=== PATIENT | female | born 1940 | race Two or more races ===

== ENCOUNTER → 2024-08-25 | Outpatient (CLI) | payer OTHER, MEDICAID, SELFPAY | END | disposition home or self-care (01) | LOC: COPL 16:21 → SLDO 16:26 | PROVIDERS: PCP Family Medicine; Referring Provider Family Medicine; Visit Provider Family Medicine | DX: N39.0 Urinary tract infection, site not specified (principal) | CPT/HCPCS: 87077; 87086; 87186 ==

== ENCOUNTER → 2024-10-06 | Outpatient (CLI) | payer MEDICARE, MEDICAID, SELFPAY | END | disposition home or self-care (01) | PROVIDERS: PCP Family Medicine; Referring Provider Family Medicine; Visit Provider Family Medicine | DX: N39.0 Urinary tract infection, site not specified (principal) | CPT/HCPCS: 87086 ==

== ENCOUNTER → 2024-10-11 | Outpatient (CLI) | payer MEDICARE, MEDICAID, SELFPAY ==
[2024-10-11 10:25] LABS: Collection Type, Urine Clean Catch
[2024-10-11 10:56] LABS: Bilirubin,Urine Negative (Negative); Blood,Urine Negative (Negative); Clarity,Urine Clear (Clear/Hazy); Color,Urine Lt-Yellow (Lt Yel-Yel); Culture Indicated,Urine Not Indicated; Glucose, Urine Negative (Negative); Hyaline Casts,Urine < 1 /hpf (0-1); Ketones,Urine Negative (Negative); Leukocyte Esterase,Urine Negative (Negative); Nitrite,Urine Negative (Negative); Protein,Urine Trace (Neg - Trace); RBC,Urine 18 /hpf (0-3); Specific Gravity,Urine 1.021 (1.001-1.035); Squamous Epithelial Cell,Urine 1 /hpf (0-5); Urobilinogen,Urine Negative mg/dL (0.0-1.0); WBC,Urine 3 /hpf (0-5)
[2024-10-11 11:07] LABS: Albumin, Serum 4.4 gm/dL (3.4-4.8); Anion Gap 6 (7-16); BUN/Creatinine Ratio 18 Ratio (12-20); Blood Urea Nitrogen 16 mg/dL (9-23); Calcium 9.6 mg/dL (8.3-10.6); Calcium (Corrected) 9.6 mg/dL (8.5-10.1); Carbon Dioxide 33.6 mMol/L (20.0-31.0); Chloride 99 mMol/L (98-107); Creatinine (Component) 0.9 mg/dL (0.6-1.3); Glucose 103 mg/dL (74-106); Osmolality,Calculated 278 (275-295); Phosphorous 3.8 mg/dL (2.4-5.1); Potassium 4.3 mMol/L (3.4-5.1); Sodium 139 mMol/L (136-145); eGFR > 60 See Note
== END | disposition home or self-care (01) ==
LOC: COPL 08:50
PROVIDERS: PCP Family Medicine; Referring Provider Internal Medicine; Visit Provider Internal Medicine
DX: I12.9 Hypertensive chronic kidney disease with stage 1 through stage 4 chronic kidney disease, or unspecified chronic kidney disease (principal); N18.30 Chronic kidney disease, stage 3 unspecified
CPT/HCPCS: 36415; 80069; 81001

== ENCOUNTER → 2024-12-14 | Outpatient (BNVA) | payer MEDICARE, MEDICAID, SELFPAY | END | disposition home or self-care (01) | PROVIDERS: PCP Family Medicine; Referring Provider Family Medicine; Visit Provider Urology | DX: N31.9 Neuromuscular dysfunction of bladder, unspecified (principal); G20.C Parkinsonism, unspecified; F03.90 Unspecified dementia, unspecified severity, without behavioral disturbance, psychotic disturbance, mood disturbance, and anxiety; I10 Essential (primary) hypertension; I25.10 Atherosclerotic heart disease of native coronary artery without angina pectoris; H35.52 Pigmentary retinal dystrophy; E03.9 Hypothyroidism, unspecified; E66.9 Obesity, unspecified; Z68.31 Body mass index [BMI] 31.0-31.9, adult | CPT/HCPCS: 81003; 99212; G0463 ==

== ENCOUNTER 2025-01-11 21:36 | Inpatient (IN) | payer OTHER, MEDICAID, MEDICARE, SELFPAY ==
--- NOTE | 2025-01-11 21:40 | EKG_ITS ---
[facility] Test Date: 2025-01-11 Pat Name: NEHA PUTNAM Department: Room: - Gender: Female [employer]asing [employer]: : 1940 Requested By: Albert Duff Order Number: [id number] Reading MD: Albert Duff Measurements Intervals [place] Rate: 58 P: 18 SC: 162 QRS: -20 QRSD: 82 T: 10 QT: 408 QTc: 404 Interpretive Statements SINUS BRADYCARDIA NONSPECIFIC T-WAVE ABNORMALITY Compared to ECG 02/05/2023 21:16:39 Sinus rhythm no longer present Myocardial infarct finding no longer present Possible ischemia no longer present T-wave abnormality still present /store/S0/[id number]/ecg/[id number].pdf
--- NOTE | 2025-01-11 21:44 | PD.EDADULT ---
ED General RME/HPI General Chief complaint: Weakness Stated complaint: GENERALIZED WEAKNESS Time Seen by Provider: 01/11/25 21:39 Arrival date/time: 01/11/25 21:36 CC: Generalized weakness with a history of diarrhea HPI patient presents to the ER via EMS who report a soft pressure but normal heart rate and normal oxygen saturations after the patient was found slumped to the commode, family members got her into the tub and then could not get her out secondary to weakness. The patient has prior 2 days of diarrhea. Patient is awake alert responding to name only. EMS have given approximately 500 mL for hypotension and route. Related Data Home Medications ?Medication ?Instructions ?Recorded ?Confirmed Aspirin Ec * (ECOTRIN *) 81 mg PO QDAY ##0 08/14/17 01/13/25 Levothyroxine * (SYNTHROID *) 50 mcg PO QDAY #0 tabs 08/14/17 01/13/25 simvastatin 40 mg tablet (Zocor) 40 mg PO HS #0 tabs 08/14/17 01/13/25 loratadine 10 mg tablet 10 mg PO QDAY 04/09/18 01/13/25 estradiol 0.01% (0.1 mg/gram) 2 g vaginal DIRECTED 01/29/24 12/14/24 vaginal cream (Estrace) albuterol sulfate 90 mcg/actuation 2 puff inhalation Q8H PRN 06/11/24 01/13/25 aerosol inhaler shortness of breath or wheezing ascorbic acid (vitamin C) 500 mg 500 mg PO QDAY 06/11/24 01/13/25 capsule bumetanide 1 mg tablet 0.5 mg PO QDAY 06/11/24 01/13/25 cranberry 500 mg capsule 500 mg PO QDAY 06/11/24 01/13/25 gabapentin 300 mg capsule 300 mg PO TID 06/11/24 01/13/25 meclizine 25 mg tablet 25 mg PO BID 06/11/24 01/13/25 propranolol 20 mg tablet 20 mg PO BID 06/11/24 01/13/25 carbidopa 25 mg-levodopa 100 mg 1 tab PO TID 01/13/25 01/13/25 tablet esomeprazole magnesium 40 mg 40 mg PO QDAY 01/13/25 01/13/25 capsule,delayed release potassium chloride 10 mEq 10 meq PO QDAY 01/13/25 01/13/25 tablet,extended release(part/cryst) Previous Rx's ?Medication ?Instructions ?Recorded amoxicillin 875 mg tablet 875 mg PO BID Diverticulitis 7 01/14/25 days #14 tabs losartan 100 mg tablet 100 mg PO QDAY 1 month #30 tabs 01/14/25 melatonin 3 mg capsule 3 mg PO HS PRN sleep 30 days #30 01/14/25 caps Allergies Allergy/AdvReac Type Severity Reaction Status Date / Time nitrofurantoin (From Allergy Intermediate Abdominal Verified 01/12/25 10:17 Macrobid) Pain macrobid Allergy Intermediate per Uncoded 01/12/25 10:17 patient family she has severe stomach Review of Systems Review of Systems ROS Unobtainable: unobtainable due to mental status Past Medical History Past Medical History CARDIAC: Positive Hypertension; Negative Congestive Heart Failure RESPIRATORY: Negative Chronic Obstructive Pulmonary Disease (COPD) GASTROINTESTINAL: Positive Gall Bladder Disease (Gallstones) GENITOURINARY: Negative Renal Disease ENDOCRINE: Negative Diabetes Mellitus Type 1 or Diabetes Mellitus Type 2 Social History SMOKING STATUS: Never smoker ED Exam Narrative Physical exam: [General: Appears not in any acute distress Head normocephalic HEENT: Within acceptable limits Neck is supple nontender Chest equal chest rise nontender to palpation Respiratory: Clear to auscultation no wheezes crackles or rubs CV: Rate rhythm is regular no murmurs rubs or clicks Abdomen is distended secondary to body habitus soft nontender no masses positive bowel sounds all 4 quadrants Back: No CVA tenderness no spinous process tenderness from cervical spine thoracic and lumbar spine Skin: Cyanotic lips, no circumoral stenosis. Intact no petechiae rash induration ulceration or crepitus Extremities: Moving all extremity against resistance cap refill less than 2 seconds neurosensory intact Neuro: Awake alert oriented x1, self, Glascow coma 15 no focal deficits] Course Quality Measures VTE prophylaxis Orders Category Date Time Status Bedside COVID-19 Antigen Test NOW Care 01/11/25 21:40 Completed Bedside Influenza A&B Antigen Test NOW Care 01/11/25 21:40 Completed EKG (ED ONLY) *Do not use* NOW Care 01/11/25 21:[address] chest abdomen pelvis wo Stat Exams 01/11/25 23:[address] head/brain wo con Stat Exams 01/11/25 23:13 Completed EKG (ED Only) Stat Exams 01/11/25 21:40 Draft ABG [Arterial Blood Gas] Stat Lab 01/12/25 03:25 Completed Ammonia Stat Lab 01/12/25 02:27 Completed B-Type Natriuretic Peptide Stat Lab 01/11/25 22:07 Completed CBC Stat Lab 01/11/25 22:07 Completed Comprehensive Metabolic Panel Stat Lab 01/11/25 22:07 Completed Drug Screen,Urine Stat Lab 01/11/25 21:40 Completed Free T4 (Free Thyroxine) Stat Lab 01/12/25 02:27 Completed LDH (Lactate Dehydrogenase) Stat Lab 01/11/25 22:07 Completed Magnesium Stat Lab 01/11/25 22:07 Completed Partial Thromboplastin Time Stat Lab 01/11/25 22:07 Completed Prothrombin Time with INR Stat Lab 01/11/25 22:07 Completed TSH [Thyroid Stimulating Hormone] Stat Lab 01/12/25 02:27 Completed Troponin I Stat Lab 01/11/25 22:07 Completed Urinalysis Stat Lab 01/11/25 00:30 Completed Aspirin [Ecotrin] Med 01/12/25 02:32 Discontinued 81 mg PO X1 ONE Clopidogrel [Plavix] Med 01/12/25 02:32 Discontinued 75 mg PO X1 ONE Vital Signs Vital signs: Vital Signs Pulse Rate 62 01/11/25 22:00 Respiratory Rate 15 01/11/25 22:00 Blood Pressure 114/70 01/11/25 22:00 Pulse Oximetry (%) 100 01/11/25 22:00 Discharge Plan Plan Patient Disposition: Admit Acute Care w/in Hospital Patient condition on transfer: Stable Problem List Clinical Impression: CVA (cerebral vascular accident), Diverticulitis, Acute respiratory failure with hypoxia MD Attestation Attestation I took over the care from Albert Hickman NP at 11 PM on 01/11/2025, see his notes for complete H&P and ED course. I reviewed all diagnostic test results. My interpretation of the EKG is sinus rhythm with no acute ST?T changes. My review of the head CT report is hypodense area in the white matter of the left frontal lobe, this is suspicious for acute infarct. My review of the chest/abdomen/pelvis CT report is: Acute diverticulitis of the sigmoid colon. Small consolidations at the lung bases, atelectasis versus small foci of pneumonia. Blood tests and urine tests unremarkable. At this point, diagnoses include CVA, diverticulitis, respiratory failure with hypoxia. Treatment here included ASA and Plavix and oxygen. Significant improvement not noted. Our telehealth neurologist recommended admission for further care. I discussed the case with our hospitalist. About the presentation and exam and diagnostics and treatments here. And need of further care in the hospital. Will accept the patient. Ruslan Scott MD
[2025-01-11 21:51] VITALS: PULSE 60; RESP 20; O2SAT 94
[2025-01-11 22:00] VITALS: BP 114/70; PULSE 62; RESP 15; O2SAT 100
[2025-01-11 22:01] VITALS: BP 114/70; PULSE 60; RESP 15; TEMP 36.6; O2SAT 100; BMI 31.2
[2025-01-11 22:36] LABS: Basophils % (Auto) 0 % (0-2.5); Eosinophils # (Auto) 0.1 Thou/mm3 (0.0-0.5); Eosinophils % (Auto) 1 % (0-10); Hematocrit 40.1 % (36.0-46.0); Hemoglobin 12.9 g/dL (12.0-16.0); Immature Granulocytes % (Auto) 1 % (0-0); Immature Granulocytes Auto 0.06 Thou/mm3 (0.00-0.00); Lymphocytes # (Auto) 0.6 Thou/mm3 (1.0-4.8); Lymphocytes % (Auto) 7 % (10-50); Mean Corpuscular HGB Conc 32.2 g/dl (31.0-37.0); Mean Corpuscular Hemoglobin 32.7 pg (25.0-35.0); Mean Corpuscular Volume 102 fL (80-100); Monocytes # (Auto) 0.7 Thou/mm3 (0.0-0.8); Monocytes % (Auto) 8 % (0-12); Neutrophils # (Auto) 7.4 Thou/mm3 (1.8-7.7); Neutrophils % (Auto) 84 % (37-80); Nucleated Red Blood Cell % 0 /100 WBC (0); Platelet Count 118 Thou/mm3 (140-440); RDW Standard Deviation 53.1 fL (36.4-46.3); Red Blood Count 3.94 Miln/mm3 (4.00-5.20); White Blood Count 8.8 Thou/mm3 (3.6-11.0)
[2025-01-11 22:42] LABS: INR 1.1 (0.9-1.3); Partial Thromboplastin Time 24.7 Seconds (22.0-36.0); Prothrombin Time 11.7 Seconds (9.0-12.2)
[2025-01-11 22:44] LABS: B-Type Natriuretic Peptide 105 pg/mL (0-100)
[2025-01-11 23:00] LABS: Alanine Aminotransferase < 7 U/L (10-49); Albumin, Serum 3.9 gm/dL (3.4-4.8); Albumin/Globulin Ratio 1.5 (1.2-2.2); Alkaline Phosphatase 52 U/L (46-116); Anion Gap 9 (7-16); Aspartate Amino Transferase 20 U/L (0-34); BUN/Creatinine Ratio 14 Ratio (12-20); Bilirubin,Total 0.4 mg/dL (0.3-1.2); Blood Urea Nitrogen 21 mg/dL (9-23); Calcium 9.1 mg/dL (8.3-10.6); Calcium (Corrected) 9.2 mg/dL (8.5-10.1); Carbon Dioxide 28.1 mMol/L (20.0-31.0); Chloride 101 mMol/L (98-107); Creatinine (Component) 1.5 mg/dL (0.6-1.3); Estimated Creatinine Clearance 23.9 mL/min (>60); Globulin 2.6 gm/dL (2.3-3.5); Glucose 100 mg/dL (74-106); Osmolality,Calculated 278 (275-295); Potassium 4.1 mMol/L (3.4-5.1); Sodium 138 mMol/L (136-145); Total Protein 6.5 gm/dL (5.7-8.2); Troponin I 0.025 ng/mL (0.0-0.045); eGFR 34 See Note
[2025-01-11 23:11] LABS: LDH (Lactate Dehydrogenase) 191 U/L (120-246)
--- NOTE | 2025-01-11 23:13 | XR_ITS ---
Examination: CT brain head without contrast. 2-D sagittal coronal reconstructions Date and time of exam:January 12, 2025 0103 hrs. Indications: Generalized weakness and altered mental status today CTDI: vol (mGy):52 DLP: (mGycm):1020 Technique: Multiple CT axial sections of the brain have been obtained, 5 mm slice thickness. Contrast has not been administered. 2-D sagittal, coronal reconstructions have been obtained Low dose protocols were performed. One or more of the following dose reduction techniques were used; automated exposure control, adjustment of the mA and/or KV according to patient size, use of iterative reconstruction technique. Findings: No significant ventricular enlargement. Low density area in the left frontal lobe consistent with infarct age-indeterminate Intra-axial or extra-axial hemorrhage density is not seen. No mass effect or midline shift Basal cisterns are not remarkable. Fourth ventricle is midline. Cranial vault intact. Impression: Negative for acute hemorrhage, mass effect or midline shift Recommend MRI brain without contrast follow-up, stroke protocol to assess acuity of the infarct in the left frontal lobe
--- NOTE | 2025-01-11 23:14 | XR_ITS ---
Examination: CT chest, without intravenous contrast. CT abdomen, without intravenous contrast. CT pelvis, without intravenous contrast. 2-D sagittal and coronal reconstructions. 3-D reconstructions. Date and time of exam:January 13, 2020 5011 hrs. Indications: Chest and abdominal pain onset today Comparison: 2022 CTDI vol (mgy) 12.7 DLP (MGycm)844 Technique: Multiple CT images, 3.0 mm slice thickness, obtained chest, abdomen, pelvis, with the high-resolution 64 slice scanner.. Sagittal and coronal 2-D reconstructions are obtained. 3-D reconstructions Low dose protocols were performed. One or more of the following dose reduction techniques were used; automated exposure control, adjustment of the mA and/or KV according to patient size, use of iterative reconstruction technique. Findings: Mediolateral dimension ascending thoracic aorta 4.3 cm Descending thoracic aorta stent in satisfactory position, transverse dimension ascending thoracic aorta 3.1 cm Mild vascular congestion Atelectasis versus mild pneumonia left base Pneumobilia Absent gallbladder No focal liver or splenic lesion Atrophic pancreas No renal or ureteral calculi, no hydronephrosis Dense abdominal aortic calcification no aneurysmal dilatation Considerable patient motion No bowel obstruction No pericecal inflammatory change Colonic diverticulosis, minimal inflammatory change Absent uterus No pelvic mass No bladder mass or bladder calculi Severe osteopenia Impression: 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
[2025-01-12] VITALS (16 sets, daily range): BP systolic 105–144; BP diastolic 51–68; PULSE 58–93; RESP 15–96; TEMP 36–37.1; O2SAT 91–995
--- NOTE | 2025-01-12 | XR_ITS ---
MRI abdomen, without contrast. MRCP Date and time of exam: January 12, 2025 1037 hours INDICATIONS: Abdominal pain today, absent gallbladder, clinical diagnosis cholangitis Technique: Multiple axial and coronal images of the abdomen have been obtained with the Siemens 1.5T MRI scanner. Images obtained included T1 weighted transverse images, T2-weighted transverse images, T2-weighted transverse images fat-suppressed, T2 weighted haste fat suppressed transverse images, T1 weighted images, in and out of phase images, T2-weighted coronal images, breath hold, T2 weighted haze coronal images as well as T2 weighted coronal thick slab images, MRCP. Findings: No focal liver lesions Absent gallbladder Common hepatic duct 14 mm Abrupt termination of the distal common bile duct No pancreatic mass or definite dilated pancreatic duct Spleen is not enlarged No ascites Aorta normal size No hydronephrosis IMPRESSION: Extrahepatic biliary tract dilatation with abrupt termination of the distal common bile duct Recommend ERCP/biopsies follow-up to exclude malignant stricture distal common bile duct
--- NOTE | 2025-01-12 | XR_ITS ---
Examinations: MRI Brain without intravenous contrast. MRA brain without intravenous contrast. MRA carotids without intravenous contrast 3-D vascular reconstructions Date and time of exam: January 12, 2025 at 1002 hours INDICATIONS: Onset altered mental status carpal speech hallucinations beginning January 11, 2025 Technique: Multiple axial and sagittal images of the brain have been obtained MRA brain carotid images without contrast obtained, including 3-D postprocessing, vascular maximum intensity projection images Findings: Sellaturc[place] is not enlarged. The optic chiasm and infundibular stalk are not remarkable. Prepontine and interpeduncular cisterns are not enlarged. No localized enlargement of the medulla or rufino. Fourth ventricle and cerebellar tonsils normal in position. Subacute hemorrhage is not seen. Fourth ventricle is midline. Mass in the cerebellopontine angle region is not evident. 7th and 8th nerve complexes exhibits symmetry. Globes are symmetrical with no retro-orbital mass. Increased white matter signal prominent Diffusion-weighted images demonstrate no foci of restricted diffusion Mass-effect upon the ventricular system is not identified. MRA carotid images degraded by patient motion. Chronic pansinusitis MRA brain images degraded by patient motion Impression: Negative for acute hemorrhage, mass effect or midline shift No acute infarct Prominent chronic microvascular white matter change
[2025-01-12 00:37] LABS: Collection Type, Urine Clean Catch; WBC,Urine 0 /hpf (0-5)
[2025-01-12 00:45] LABS: Bacteria,Urine Rare; Bilirubin,Urine Negative (Negative); Blood,Urine 1+ (Negative); Clarity,Urine Clear (Clear/Hazy); Color,Urine Lt-Yellow (Lt Yel-Yel); Glucose, Urine Negative (Negative); Ketones,Urine Negative (Negative); Leukocyte Esterase,Urine Negative (Negative); Nitrite,Urine Negative (Negative); Protein,Urine Negative (Neg - Trace); RBC,Urine 3 /hpf (0-3); Squamous Epithelial Cell,Urine < 1 /hpf (0-5); Urobilinogen,Urine Negative mg/dL (0.0-1.0)
[2025-01-12 01:29] LABS: Amphetamine/Methamp Scrn,U Negative (Negative); Barbiturate Screen,Urine Negative (Negative); Benzodiazepines Screen,Urine Negative (Negative); Benzoylecgonine Screen, Ur Negative (Negative); Fentanyl Screen,Urine Negative (Negative); Opiate Screen,Urine Negative (Negative); THC Screen,Urine Negative (Negative)
--- NOTE | 2025-01-12 02:04 | PRELIM_ITS ---
CT scan of the head without intravenous contrast (axial sections with sagittal and coronal reformats) January 12, 2025 at 0103 hours Clinical history: Altered mental status. Comparison: None. Findings: Hypodense area in the white matter of the left frontal lobe. There is no evidence of intracranial hemorrhage, mass effect or midline shift. There are periventricular white matter hypodensities, compatible with chronic small vessel ischemia. There is moderate volume loss. The calvarium is unremarkable. The mastoid air cells are clear. Mucosal thickening in the left maxillary sinus. Impression: 1. Hypodense area in the white matter of the left frontal lobe, this is suspicious for acute infarct in the territory of the left MCA. Correlation with MRI and/or CTA is recommended. 2. No evidence of intracranial hemorrhage, mass effect or midline shift. 3. Periventricular chronic small vessel ischemia and volume loss. 4. Left maxillary sinusitis. Aspect score 9. Discussion Details: Results verbally communicated to : Dr Scott at 01:52 AM 01/12/2025 Report Electronically Signed By: Tate Chen 01/12/2025 2:04:00 AM [EST]
--- NOTE | 2025-01-12 02:08 | PC.NURSE ---
Case # [id number] has been created.
--- NOTE | 2025-01-12 02:09 | PD.RESHP ---
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 She was found slumped to the commode by her family. Most of the history was gathered through chart review, talking to the patient's daughter Johnna and talking to medical personnel. Daughter denies trauma to the head. According to the patient's daughter, Johnna, patient's usually is alert and oriented and worsening of mentation has started today, she had been having back pain, received Toradol. She also had episode of diarrhea and abdominal colic with reported umbilical area pain. In the ED teleneuro was consulted, patient was not a candidate for thrombolytic therapy, NIHSS score is 5. CT of the head was concerning for possible increased microvascular disease in the left periventricular region versus acute ischemia. ED course: Blood pressure 114/70, heart rate 62, saturating well on 6 L nasal cannula. Labs showed: WBC count of 8.8, hemoglobin 12.9, hematocrit 40.1, platelet count of 118. ABG showed pH of 7.30, pCO2 58, PO2 123. Sodium 138, potassium 4.1, chloride 101, BUN 21, creatinine 1.5, glucose 100. Ammonia less than 10. Troponin I 0.0 25, BNP 805, TSH 4.07, T4 1.24. She received aspirin 81 mg and clopidogrel 75 mg. Patient is going to be admitted for acute stroke rule out. Social history: unaccessible due to mental status Surgical history: unaccessible due to mental status Medications: med rec is pending Review of Systems Review of Systems ROS Unobtainable: unobtainable due to mental status Past Medical History Past Medical History CARDIAC: Positive Hypertension; Negative Congestive Heart Failure RESPIRATORY: Negative Chronic Obstructive Pulmonary Disease (COPD) GASTROINTESTINAL: Positive Gall Bladder Disease (Gallstones) GENITOURINARY: Negative Renal Disease ENDOCRINE: Negative Diabetes Mellitus Type 1 or Diabetes Mellitus Type 2 Social History SMOKING STATUS: Never smoker Exam Vital Signs Temp Pulse Resp BP Pulse Ox O2 Del Method O2 Flow Rate 96.8 F 60 18 122/68 99 Nasal Cannula 3 01/12/25 01:21 01/12/25 01:21 01/12/25 01:21 01/12/25 01:21 01/12/25 01:21 01/12/25 01:21 01/12/25 01:21 Narrative Exam Physical Exam General: Somnolent, easily wakes up. Follow commands. AOx1. Bilateral blindness. HEENT: Normocephalic, atraumatic, mucous membranes moist. Heart: Regular rate and rhythm, no murmurs. Lungs: Clear to auscultation with no wheezing or crackles. Abdomen: Soft, nondistended,mild diffuse tenderness, positive bowel sounds. ?No guarding or rebound tenderness. Neurologic: Alert and oriented x1, speech incomprehensible, no gross neurological deficit, and patient able to move all 4 extremities. Extremities: 1+ edema. Skin: No rash or ecchymoses. Results: Labs 01/12/25 05:32 01/12/25 05:32 Labs: Short CBC 01/11/25 Range/Units 22:07 WBC 8.8 (3.6-11.0) Thou/mm3 Hgb 12.9 (12.0-16.0) g/dL Hct 40.1 (36.0-46.0) % Plt Count 118 L (140-440) Thou/mm3 BMP 01/11/25 22:07 Sodium 138 Potassium 4.1 Chloride 101 Carbon Dioxide 28.1 BUN 21 Creatinine 1.5 H Glucose 100 Calcium 9.1 Cardiac Enzymes 01/11/25 Range/Units 22:07 Troponin I 0.025 (0.0-0.045) ng/mL Liver Function 01/11/25 Range/Units 22:07 Total Bilirubin 0.4 (0.3-1.2) mg/dL AST 20 (0-34) U/L ALT < 7 L (10-49) U/L Alkaline Phosphatase 52 (46-116) U/L Albumin 3.9 (3.4-4.8) gm/dL Urine 01/11/25 Range/Units 00:30 Urine Color Lt-Yellow (Lt Yel-Yel) Urine Clarity Clear (Clear/Hazy) Urine pH 6.0 (5.0-7.0) Ur Specific [place] 1.010 (1.001-1.035) Urine Protein Negative (Neg - Trace) Urine Glucose (UA) Negative (Negative) Quality Measures Quality Measures VTE prophylaxis Advance care planning discussed with:: other Medications Home Medications and Allergies Home Medications ?Medication ?Instructions ?Recorded ?Confirmed ?Type Aspirin Ec * (ECOTRIN *) 81 mg PO QDAY ##0 08/14/17 12/14/24 History Levothyroxine * (SYNTHROID *) 50 mcg PO QDAY #0 tabs 08/14/17 12/14/24 History simvastatin 40 mg tablet (Zocor) 40 mg PO HS #0 tabs 08/14/17 12/14/24 History loratadine 10 mg tablet 10 mg PO QDAY 04/09/18 12/14/24 History estradiol 0.01% (0.1 mg/gram) 2 g vaginal DIRECTED 01/29/24 12/14/24 History vaginal cream (Estrace) albuterol sulfate 90 mcg/actuation 2 puff inhalation Q8H PRN 06/11/24 12/14/24 History aerosol inhaler ascorbic acid (vitamin C) 500 mg 500 mg PO QDAY 06/11/24 12/14/24 History capsule bumetanide 1 mg tablet 1 mg PO QDAY 06/11/24 12/14/24 History cranberry 500 mg capsule 500 mg PO QDAY 06/11/24 12/14/24 History gabapentin 300 mg capsule 300 mg PO TID 06/11/24 12/14/24 History meclizine 25 mg tablet 25 mg PO BID PRN 06/11/24 12/14/24 History nitrofurantoin 100 mg PO QDAY 06/11/24 12/14/24 History monohydrate/macrocrystals 100 mg capsule (Macrobid) propranolol 20 mg tablet 20 mg PO BID 06/11/24 12/14/24 History Allergies Allergy/AdvReac Type Severity Reaction Status Date / Time macrobid Allergy Intermediate per Uncoded 12/14/24 08:15 patient family she has severe stomach Assessment & Plan Plan The patient is a 84-year-old female with a previous medical history of dementia, Parkinson's disease, hypothyroidism, 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 #Stroke rule out #Altered mental status #History of dementia Patient is usually alert and oriented, according to the daughter. Altered mentation started yesterday. Daughter denies trauma to the head. In the ED teleneuro was consulted, patient was not a candidate for thrombolytic therapy, NIHSS score is 5. CT of the head was concerning for possible increased microvascular disease in the left periventricular region versus acute ischemia. Plan: -Telemetry -Neuro Checks q4hr -Bedside Swallow Eval - DVT Prophylaxis -IV Fluids, Normal Saline at 75 ml/hr - Head of Bed 30 Degrees -Euglycemia and Avoid Hyperthermia (PRN Acetaminophen) -Aspirin 81 mg daily and Clopidogrel 75 mg daily. -MRI brain wo contrast - Lactic acid, Pro-amalia ordered - lipid panel, A1c #Acute diverticulitis Patient's daughter reports that patient has been having abdominal pain the day before. CT of the abdomen showed acute colonic diverticulitis, pneumobilia. Plan: - ciprofloxacin 500 mg q12hr 01/12/25-current - metronidazole 400 mg q8 hr 01/12/25-current - GI consult #STEPHENIE Could be in the setting if poor oral intake and acute infection. Creatinine 1.5, baseline 0.9 in September 2024 Plan: - monitor daily CMP - avoid nephrotoxic agents - normal saline at 75 ml/hr #History of Parkinson's disease Plan: - resume home carbidopa-levodopa #History of hypothyroidism Plan: - med rec is pending - consider resume home levothyroxine #Bilateral blindness Due retinitis pigmentosa. Plan: - fall precations Health maintenance: FEN: NPO until passes swallow eval DVT prophylaxis: heparin GI prophylaxis: none Dispo: telemetry CODE STATUS: Full code Plan of care discussed with attending Dr. Shah. Hazel Hubbard MD, PGY 1. Attending Provider Attestation/Addendum I have examined the patient, reviewed labs and imaging findings, discussed the case with the resident(s), and reviewed entered orders. I agree with the plan of care as outlined in this note, with these additional summaries/recommendations: Patient is a 84-year-old female with a medical history of dementia, Parkinson disease, chronic encephalopathy, GERD, chronic hypokalemia, hypothyroidism, neuropathy, and primary hypertension who presents to [facility] emergency department on 01/12/2025 with chief complaints of AMS, hallucinations, and generalized weakness. Stroke alert was called in the emergency department and thus hospitalist team consulted for continuation of care. Patient seen at bedside. She is a poor historian and no reliable history can be obtained at this time. Patient diagnosed with acute on chronic encephalopathy with generalized weakness. Possible etiologies include worsening Parkinson's disease/ medication induced from carbidopa-levodopa versus acute CVA versus metabolic etiology versus infectious. Ammonia within normal limits. TSH normal. No obvious metabolic etiology at this time. No evidence of infectious etiology although family did endorse some diarrhea and mild abdominal pain yesterday that resolved. We will order CT scan of abdomen/pelvis to evaluate further. Stroke alert was called in the emergency room. Teleneurology recommends starting aspirin 81 mg p.o. daily and Plavix 75 mg p.o. daily. Start atorvastatin. Not a candidate for IV thrombolytics. N.p.o. until bedside swallow evaluation. Refer to speech therapy and physical therapy. Consult in-house neurology. Allow permissive hypertension for the first 24 hours. Order MRI brain and CTA head and neck. Order echocardiogram with bubble study. Patient was also noted to have STEPHENIE which is most likely secondary to prerenal azotemia from dehydration. Creatinine 1.5 on admission and appears baseline is 0.9. We will give low-dose fluids and repeat renal panel in AM. Resume home potassium when able as well as levothyroxine. Patient has underlying neuropathy although no complaints at this time. Repeat hematology and chemistry panel in AM. Please see residents note for additional details. Dr. Pablo MD Teleradiology CT report of chest/abodmen/pelvis returned showing Acute Diverticulitis. Patient started on IV abx. Pneumobilia also present which i feel is likely an incidental finding as patient has no leukocytosis, normal total bilirubin, normal LFTs, and normal alkaline phosphatase. We will continue to monitor and consult gastroenterology. Patient also noted to have aneurysmal dilation of the ascending thoracic aorta and will need to follow-up outpatient.
--- NOTE | 2025-01-12 02:46 | ESCONSULT_ITS ---
Tele Neuro Consultation Consultation Date 01/12/25 Most Recent Vital Signs Last Vital Signs Temp 96.8 F 01/12/25 01:21 Pulse 60 01/12/25 01:21 Resp 18 01/12/25 01:21 BP 122/68 01/12/25 01:21 Pulse Ox 99 01/12/25 01:21 O2 Del Method Nasal Cannula 01/12/25 01:21 O2 Flow Rate 3 01/12/25 01:21 Laboratory-Coagulation Panel PT 11.7 Seconds (9.0-12.2) 01/11/25 22:07 INR 1.1 (0.9-1.3) 01/11/25 22:07 APTT 24.7 Seconds (22.0-36.0) 01/11/25 22:07 Consultation Narrative [facility] Patient Name:???Ilda Damian Date of :???1940 Identification Number:??? Date of Service:???01/12/2025 02:08:09 Diagnosis:?G93.49 - Encephalopathy Multifactorial Impression: ?The patient has a h/o dementia, parkinsons disease, and blindness at baseline, presents with worsening of altered mental status, hallucinations, and speaking nonsense and also has generalized weakness with diarrhea. The family says she normally speaks nonsense intermittently along with hallucinations but today was worse or constant. On exam she has generalized weakness in bilateral LE's and also appears to have asterixis throughout. CTH shows possible increased microvascular disease in the L periventricular region vs acute ischemia such as watershed infarct in this region. She is outside the window for IV thrombolytics and exam not suggestive of LVO. Given her baseline function not a candidate for EMY consideration, thus will admit for further workup with asa and plavix. Other causes such as toxic/metabolic/infectious encephalopathy also need to be ruled out along with hyperammonemia. Our recommendations are outlined below. Recommendations: ? Stroke/Telemetry Floor ? Neuro Checks ? Bedside Swallow Eval ? DVT Prophylaxis ? IV Fluids, Normal Saline ? Head of Bed 30 Degrees ? Euglycemia and Avoid Hyperthermia (PRN Acetaminophen) ? Initiate dual antiplatelet therapy with Aspirin 81 mg daily and Clopidogrel 75 mg daily. ? Antihypertensives PRN if Blood pressure is greater than 220/120 or there is a concern for End organ damage/contraindications for permissive HTN. If blood pressure is greater than 220/120 give labetalol PO or IV or Vasotec IV with a goal of 15% reduction in BP during the first 24 hours. ?admit for MRI brain wo contrast ?Get WORKUP for TOXIC/METABOLIC/INFECTIOUS causes including UA and ammonia level Sign Out: ? Discussed with Emergency Department Provider Advanced Imaging: Advanced Imaging Deferred because: Non-disabling symptoms as verified by the patient; no cortical signs so not consistent with LVO Poor functional status at baseline, a greater risk than benefit with acute intervention Metrics: Last Known Well: 01/11/2025 13:30:00 Dispatch Time: 01/12/2025 02:08:09 Arrival Time: 01/11/2025 21:36:00 Initial Response Time: 01/12/2025 02:10:50Symptoms: increased confusion and generalized weakness. Initial patient interaction: 01/12/2025 02:11:12 NIHSS Assessment Completed: 01/12/2025 02:15:12Patient is not a candidate for Thrombolytic. Thrombolytic Medical Decision: 01/12/2025 02:17:14Patient was not deemed candidate for Thrombolytic because of following reasons: LKW outside 4.[address] head showed no acute hemorrhage or acute core infarct. Primary Provider Notified of Diagnostic Impression and Management Plan on: 01/12/2025 02:38:38 History of Present Illness:Patient is a 84 year old Female. Patient was brought by EMS for symptoms of increased confusion and generalized weakness. She has a h/o parkinsons and dementia. She went to a routine visit and complained of pain in her legs and got a shot of toradol as she has had before. LKWT was 1330 at around lunch. She was talking nonsense and then had colic. She was hallucinating seeing children in her bed. She takes sinemet for parkinsons. She has had this problem before. She went to the bathroom for diarrhea and she was weak and fell down. She has periodic confusion at baseline. Past Medical History: ?Dementia/MCI ?There is no history of Stroke Other PMH:? parkinsons ?dementia ?legally blind due to retinitis pigmentosa ?CHF ? unable to obtain due to:?? Patient Is Confused Medications: No Anticoagulant use? Antiplatelet use:?Yes?asa Reviewed EMR for current medications Allergies:? Reviewed Allergies Unable To Obtain Due To:?Patient Is Confused Social History: Unable To Obtain Due To Patient Status :?Patient Is Confused Family History: Family History Cannot Be Obtained Because:Patient Is Confused ROS :?ROS Cannot Be Obtained Because:? Patient Is Confused Past Surgical History: Past Surgical History Cannot Be Obtained Because: Patient Is Confused There Is No Surgical History Contributory To Today?s Visit Examination: BP(110/58),?Pulse(60),?Blood Glucose(107) 1A: Level of Consciousness - Arouses to minor stimulation?+ 1 1B: Ask Month and Age - 1 Question Right?+ 1 1C: Blink Eyes & Squeeze Hands - Performs Both Tasks?+ 0 2: Test Horizontal Extraocular Movements - Normal?+ 0 3: Test Visual Johnson - No Visual Loss?+ 0 4: Test Facial Palsy (Use Grimace if Obtunded) - Normal symmetry?+ 0 5A: Test Left Arm Motor Drift - No Drift for 10 Seconds?+ 0 5B: Test Right Arm Motor Drift - No Drift for 10 Seconds?+ 0 6A: Test Left Leg Motor Drift - Drift, but doesn't hit bed?+ 1 6B: Test Right Leg Motor Drift - Drift, but doesn't hit bed?+ 1 7: Test Limb Ataxia (FNF/Heel-Smith) - No Ataxia?+ 0 8: Test Sensation - Normal; No sensory loss?+ 0 9: Test Language/Aphasia - Mild-Moderate Aphasia: Some Obvious Changes, Without Significant Limitation?+ 1 10: Test Dysarthria - Normal?+ 0 11: Test Extinction/Inattention - No abnormality?+ 0 NIHSS Score:?5 NIHSS Free Text :?blind at baseline ?asterixis noted bilaterally Pre-Morbid Modified Lawrence Scale:3 Points = Moderate disability; requiring some help, but able to walk without assistance Spoke with :?Dr Hickman This consult was conducted in real time using interactive audio and video technology. Patient was informed of the technology being used for this visit and agreed to proceed. Patient located in hospital and provider located at home/office setting. Patient is being evaluated for possible acute neurologic impairment and high probability of imminent or life-threatening deterioration. I spent total of 35 minutes providing care to this patient, including time for face to face visit via telemedicine, review of medical records, imaging studies and discussion of findings with providers, the patient and/or family. Dr Andrés Freeman [facility] For Inpatient follow-up with [facility] physician please call [facility] at . As we are not an outpatient service for any post hospital discharge needs please contact the hospital for assistance. If you have any questions for the [facility] physicians or need to reconsult for clinical or diagnostic changes please contact us via [facility] at .
[2025-01-12 02:54] LABS: Free T4 (Free Thyroxine) 1.24 ng/dL (0.89-1.76); Thyroid Stimulating Hormone 4.07 uIU/mL (0.55-4.78)
[2025-01-12] MEDS: ASPIRIN EC 81 MG TABEC PO ×2 (03:06→09:25)
[2025-01-12] MEDS: CLOPIDOGREL BISULFATE 75 MG TABLET PO ×2 (03:06→09:25)
[2025-01-12 03:12] LABS: Ammonia < 10 uMol/L (11-32)
[2025-01-12 03:33] LABS: Base Excess 1 (-3-3); HCO3 28 mEq/L (20-26); Inspired Oxygen, FIO2 21 %; O2 Saturation 99 % (91-98); PCO2 58 mmHg (32.0-48.0); PO2 123 mmHg (83-108)
[2025-01-12 03:34] LABS: Allen Test Performed/OK; Puncture Site Left Radial
--- NOTE | 2025-01-12 03:52 | PRELIM_ITS ---
CT scan of the chest, abdomen and pelvis without intravenous contrast (axial sections with sagittal and coronal reformats) January 12, 2025 0110 hours Clinical History: Chest and abdominal pain Comparison: None available at the time of this report. Findings: Small consolidations at the lung bases, atelectasis versus small foci of pneumonia. There is no pleural effusion or pneumothorax. Aneurysmal dilation of the ascending thoracic aorta measuring up to 4.4 cm. Stent in the descending thoracic aorta. No evidence of mediastinal mass or lymphadenopathy. There is no pericardial effusion. The liver, spleen, pancreas, adrenals and kidneys are unremarkable on this noncontrast study. S/p cholecystectomy. Pneumobilia. No evidence of bowel obstruction. No evidence of appendicitis. The urinary bladder is unremarkable. There is no free fluid or free air. The osseous structures are unremarkable. Coronary arteries calcifications. Diverticulosis of the colon. Thickening of the sigmoid colon associated with trace of peripheral fat stranding, no perforation, no collections. Impression: Acute diverticulitis of the sigmoid colon. Small consolidations at the lung bases, atelectasis versus small foci of pneumonia. Coronary arteries calcifications. If acute myocardial infarction is clinically suspected consider correlation with troponin. Aneurysmal dilation of the ascending thoracic aorta, follow-up is recommended. Pneumobilia, consider cholangitis in the differential diagnosis. Report Electronically Signed By: Tate Chen 01/12/2025 3:52:13 AM [EST]
[2025-01-12] MEDS: RINGERS LACTATED 500 ML 500 ML 75 ML IV (04:49)
[2025-01-12] MEDS: HEPARIN SOD INJ 5000 UNIT/ML VIAL SC ×2 (05:44→18:15)
[2025-01-12 05:47] LABS: Basophils % (Auto) 0 % (0-2.5); Eosinophils # (Auto) 0.1 Thou/mm3 (0.0-0.5); Eosinophils % (Auto) 1 % (0-10); Hemoglobin 12.4 g/dL (12.0-16.0); Immature Granulocytes % (Auto) 1 % (0-0); Immature Granulocytes Auto 0.05 Thou/mm3 (0.00-0.00); Lymphocytes % (Auto) 11 % (10-50); Mean Corpuscular HGB Conc 31.8 g/dl (31.0-37.0); Mean Corpuscular Hemoglobin 32.9 pg (25.0-35.0); Mean Corpuscular Volume 103 fL (80-100); Monocytes # (Auto) 1.2 Thou/mm3 (0.0-0.8); Monocytes % (Auto) 13 % (0-12); Neutrophils # (Auto) 6.6 Thou/mm3 (1.8-7.7); Neutrophils % (Auto) 74 % (37-80); Nucleated Red Blood Cell % 0 /100 WBC (0); Platelet Count 104 Thou/mm3 (140-440); RDW Standard Deviation 53.1 fL (36.4-46.3); Red Blood Count 3.77 Miln/mm3 (4.00-5.20); White Blood Count 8.9 Thou/mm3 (3.6-11.0)
--- NOTE | 2025-01-12 06:02 | PD.EVENT ---
Documentation for date of: 01/12/25 Event Note Event Note: CT Report from
[2025-01-12 06:18] LABS: Glucose Estimated Average 103 mg/dL (80-131); Hemoglobin A1C 5.2 % Hgb (4.8-6.0)
[2025-01-12 06:41] LABS: Alanine Aminotransferase < 7 U/L (10-49); Albumin, Serum 3.7 gm/dL (3.4-4.8); Albumin/Globulin Ratio 1.8 (1.2-2.2); Alkaline Phosphatase 44 U/L (46-116); Anion Gap 8 (7-16); Aspartate Amino Transferase 23 U/L (0-34); BUN/Creatinine Ratio 15 Ratio (12-20); Bilirubin,Total 0.4 mg/dL (0.3-1.2); Blood Urea Nitrogen 21 mg/dL (9-23); Calcium 8.5 mg/dL (8.3-10.6); Calcium (Corrected) 8.7 mg/dL (8.5-10.1); Carbon Dioxide 24.2 mMol/L (20.0-31.0); Cardiac Risk Estimate 2.8 RATIO (3.7-5.6); Chloride 104 mMol/L (98-107); Cholesterol 106 mg/dL (132-200); Creatinine (Component) 1.4 mg/dL (0.6-1.3); Estimated Creatinine Clearance 25.7 mL/min (>60); Globulin 2.1 gm/dL (2.3-3.5); Glucose 94 mg/dL (74-106); HDL Cholesterol 38 mg/dL (40-60); LDL Cholesterol,Calculated 44 mg/dL (0-130); Osmolality,Calculated 274 (275-295); Phosphorous 5.2 mg/dL (2.4-5.1); Potassium 5.1 mMol/L (3.4-5.1); Procalcitonin 8.65 ng/ml (0.0-0.49); Sodium 136 mMol/L (136-145); Total Protein 5.8 gm/dL (5.7-8.2); Triglycerides 120 mg/dL (30-150); eGFR 37 See Note
[2025-01-12 08:36] LABS: Reflex Lactate? Y
--- NOTE | 2025-01-12 09:05 | ESCONSULT_ITS ---
<Statement entered by Beba Reyes MD - 01/17/25 08:35> I personally examined evaluated the patient admitted hospital multiple problems known to be followed up in the office has some confusion no shortness of breath chest pain no evidence of an acute coronary syndrome patient is clinically stable cardiovascular is evaluated the patient with resident physician agree with the treatment plan recommendation as documented by Dr. 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 She was found slumped to the commode by her family. Most of the history was gathered through chart review, talking to the patient's daughter Johnna and talking to medical personnel. Daughter denies trauma to the head. According to the patient's daughter, Johnna, patient's usually is alert and oriented and worsening of mentation has started today, she had been having back pain, received Toradol. She also had episode of diarrhea and abdominal colic with reported umbilical area pain. In the ED teleneuro was consulted, patient was not a candidate for thrombolytic therapy, NIHSS score is 5. CT of the head was concerning for possible increased microvascular disease in the left periventricular region versus acute ischemia. Patient follows Dr Reyes (cardiology). Consulted for chronic cardiovascular conditions. cc:: cc: Violeta Tate MD Review of Systems Review of Systems Systems Reviewed: All systems reviewed, normal except as documented Exam Vital Signs Temp Pulse Resp BP Pulse Ox O2 Del Method O2 Flow Rate 97.2 F 83 14 158/69 H 97 Room Air 3 01/13/25 04:00 01/13/25 04:00 01/13/25 04:00 01/13/25 04:00 01/13/25 04:00 01/13/25 04:00 01/12/25 06:55 Narrative Exam Physical Exam General: Somnolent, easily wakes up. Follow commands. AOx1. Bilateral blindness. HEENT: Normocephalic, atraumatic, mucous membranes moist. Heart: Regular rate and rhythm, no murmurs. Lungs: Clear to auscultation with no wheezing or crackles. Abdomen: Soft, nondistended,mild diffuse tenderness, positive bowel sounds. ?No guarding or rebound tenderness. Neurologic: Alert and oriented x1, speech incomprehensible, no gross neurological deficit, and patient able to move all 4 extremities. Extremities: 1+ edema. Skin: No rash or ecchymoses. Results Labs 01/13/25 05:27 01/13/25 05:27 Labs: Short CBC 01/13/25 Range/Units 05:27 WBC 6.8 (3.6-11.0) Thou/mm3 Hgb 12.1 (12.0-16.0) g/dL Hct 36.6 (36.0-46.0) % Plt Count 125 L D (140-440) Thou/mm3 BMP 01/13/25 05:27 Sodium 141 Potassium 4.2 D Chloride 103 Carbon Dioxide 29.4 BUN 18 Creatinine 0.8 D Glucose 92 Calcium 8.8 Liver Function 01/13/25 Range/Units 05:27 Total Bilirubin 0.5 (0.3-1.2) mg/dL AST 20 (0-34) U/L ALT < 7 L (10-49) U/L Alkaline Phosphatase 41 L (46-116) U/L Albumin 3.8 (3.4-4.8) gm/dL ABG Interpretation ABG results: 01/12/25 03:25 ABG pH 7.30 L ABG pCO2 58 H ABG pO2 123 H ABG HCO3 28 H ABG O2 Saturation 99 H ABG Base Excess 1 Quality Measures Quality Measures VTE prophylaxis Advance care planning discussed with:: patient Medications Home Medications and Allergies Home Medications ?Medication ?Instructions ?Recorded ?Confirmed ?Type Aspirin Ec * (ECOTRIN *) 81 mg PO QDAY ##0 08/14/17 0 01/13/25 History Levothyroxine * (SYNTHROID *) 50 mcg PO QDAY #0 tabs 1 10/14/16 01/13/25 History simvastatin 40 mg tablet (Zocor) 40 mg PO HS #0 tabs 1 10/14/16 01/13/25 History loratadine 10 mg tablet 10 mg PO QDAY 04/09/1801/13 History estradiol 0.01% (0.1 mg/gram) 2 g vaginal DIRECTED 01/29/24 12/14/24 History vaginal cream (Estrace) albuterol sulfate 90 mcg/actuation 2 puff inhalation Q 8H PRN 06/11/24 01/13/25 History aerosol inhaler shortness of breath or wheez ing ascorbic acid (vitamin C) 500 mg 500 mg PO QDAY 01/13/25 History capsule bumetanide 1 mg tablet 0.5 mg PO QDAY 06/11/2412/28 History cranberry 500 mg capsule 500 mg PO QDAY 06/11/2412/28 History gabapentin 300 mg capsule 300 mg PO TID 06/11/2401/13 History meclizine 25 mg tablet 25 mg PO BID 06/11/24 History nitrofurantoin 100 mg PO QDAY 06/11/2412/28 History monohydrate/macrocrystals 100 mg capsule (Macrobid) propranolol 20 mg tablet 20 mg PO BID 06/11/24 History carbidopa 25 mg-levodopa 100 mg 1 tab PO TID 01/13/25 01/13/25 History tablet esomeprazole magnesium 40 mg 40 mg PO QDAY 01/13/25 History capsule,delayed release potassium chloride 10 mEq 10 meq PO QDAY 01/13/2512/28 History tablet,extended release(part/cryst) Allergies Allergy/AdvReac Type Severity Reaction Status Date / Time nitrofurantoin (From Allergy Intermediate Abdominal Verified 01/12/25 10:17 Macrobid) Pain macrobid Allergy Intermediate per Uncoded 01/12/25 10:17 patient family she has severe stomach Visit Medications Acetaminophen (Acetaminophen 325 Mg Tablet) 650 mg PO Q6H PRN PRN Reason: Fever >100.3 or pain 1-3 Stop: 02/11/25 03:31 Last Admin: 01/12/25 19:37 Dose: 650 mg Atorvastatin Calcium (Atorvastatin Calcium 10 Mg Tablet) 40 mg PO HS [facility] Stop: 02/11/25 20:59 Last Admin: 01/12/25 21:43 Dose: 40 mg Carbidopa/Levodopa (Carbidopa/Levodopa 25/100 Mg Tablet) 1 tab PO TID [facility] Stop: 02/11/25 05:59 Last Admin: 01/13/25 05:41 Dose: 1 tab Heparin Sodium (Porcine) (Heparin Sod Inj 5000 Unit/Ml Vial) 5,000 unit SC Q8HR [facility] [place] Stop: 01/26/25 05:59 Last Admin: 01/13/25 05:41 Dose: 5,000 unit Piperacillin/Tazobactam/Dextrose (Zosyn) 3.375 gm in 50 mls @ 12.5 mls/hr IV Q8HR [facility] [place] Stop: 01/19/25 13:59 Last Admin: 01/13/25 05:41 Dose: 12.5 mls/hr Levothyroxine Sodium (Levothyroxine Sodium 25 Mcg Tablet) 50 mcg PO ACBR [facility] [place] Stop: 02/12/25 05:59 Last Admin: 01/13/25 05:41 Dose: 50 mcg Ondansetron HCl (Ondansetron Inj 2 Mg/Ml Inj 2 Ml) 4 mg IV Q6H PRN; Protocol PRN Reason: NAUSEA OR VOMITING Stop: 02/11/25 03:31 Oxycodone/Acetaminophen (Oxycodone/Apap 5/325 Tablet) 1 tab PO Q6H PRN PRN Reason: PAIN SCALE 4-10(Mod-Sev Stop: 01/17/25 03:31 Discontinued Medications Aspirin (Aspirin Ec 81 Mg Tabec) 81 mg PO X1 ONE Stop: 01/12/25 02:33 Last Admin: 01/12/25 03:06 Dose: 81 mg Aspirin (Aspirin Ec 81 Mg Tabec) 81 mg PO QDAY [facility] [place] Stop: 02/11/25 08:59 Last Admin: 01/12/25 09:25 Dose: 81 mg Clopidogrel Bisulfate (Clopidogrel Bisulfate 75 Mg Tablet) 75 mg PO X1 ONE Stop: 01/12/25 02:33 Last Admin: 01/12/25 03:06 Dose: 75 mg Clopidogrel Bisulfate (Clopidogrel Bisulfate 75 Mg Tablet) 75 mg PO QDAY [facility] [place] Stop: 02/11/25 08:59 Last Admin: 01/12/25 09:25 Dose: 75 mg Lactated Ringer's (Lactated Ringers) 500 mls @ 75 mls/hr IV .Q6H40M ONE Stop: 01/12/25 10:49 Last Infusion: 01/12/25 11:51 Dose: Infused Ciprofloxacin/Dextrose (Cipro Ivpb) 400 mg in 200 mls @ 200 mls/hr IV Q12HR [facility] Stop: 01/19/25 05:46 Last Admin: 01/12/25 10:06 Dose: Not Given Metronidazole (Flagyl 500 Mg Iv) 500 mg in 100 mls @ 200 mls/hr IV Q8HR [facility] Stop: 01/19/25 05:47 Last Admin: 01/12/25 10:07 Dose: Not Given Piperacillin/Tazobactam/Dextrose (Zosyn) 3.375 gm in 50 mls @ 100 mls/hr IV X1 ONE Stop: 01/12/25 08:29 Last Infusion: 01/12/25 10:07 Dose: Infused Assessment & Plan Plan #Hx of hypertension Assessment: No hx of CHF. Stable at this time. Recommendation: -resume home meds #Stroke rule out #Altered mental status #History of dementia #Acute diverticulitis #STEPHENIE #History of Parkinson's disease #History of hypothyroidism #Bilateral blindness -Defer management to primary team - Patient's care was discussed with my attending physician, Dr. Eric Hunt MD Internal Medicine PGY-3
--- NOTE | 2025-01-12 09:12 | PD.RESCONSUL ---
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 Neurology was consulted with patient family member at the bedside daughter patient was complaining of back pain for when she went to see her PCP?gave a Toradol shot and later around 1 PM patient started to present altered mental status and speaking nonsense words in the conversation did not make sense for later she went to take a nap and when she wake up stridor present colicky abdominal pain for which she received antidiarrheal medications x 2 and later during the day patient had diarrhea and again was altered associated to visual hallucinations for which she decided to come to the ER. At the ED patient was normotensive, heart rate 62 saturating well on 6 L per nasal cannula. Labs were significant for thrombocytopenia plt 119, ABGs showed respiratory acidosis creatinine 1.5. Ammonia less than 10, BNP 805, TSH normal T3 normal. Imaging: CT head showed Negative for acute hemorrhage, mass effect or midline shift, brain MRI Prominent chronic microvascular white matter changes, no acute infarct, negative for acute hemorrhage, mass effect or midline shift. cc:: cc: Violeta Tate MD Exam Vital Signs Temp Pulse Resp BP Pulse Ox O2 Del Method O2 Flow Rate 98.7 F 66 15 121/63 96 Room Air 3 01/12/25 07:49 01/12/25 07:49 01/12/25 07:49 01/12/25 07:49 01/12/25 07:49 01/12/25 07:49 01/12/25 06:55 Narrative Exam General: Lethargic, frail, AO x 1, confused, somnolent HEENT: NC/AT, PERRL, EOMI, Good conjugate gaze, moist mucous membranes, blood Neck: Supple, No masses, No adenopathy, carotid pulse 2+ bilaterally without bruits, No JVD, normal range of motion. Chest: Symmetrical, atraumatic, and with equal expansion , Nontender on palpation no deformity and no crepitus. CVS: S1 and S2 present, Regular rate and rhythm, No murmurs, rubs or gallops perceived during auscultation. Lungs: Normal respiratory effort, CTAB, no wheezing, rhonchi or rales perceived during auscultation, No intercostal or subcostal retraction. Abdomen : Soft, no tenderness to palpation, no guarding ,no rebound, +BS, no organomegaly. Extremities: No edema, warm well perfused, normal tone and ROM, strength and sensation intact, cap refill less than 2, +2 dp equal bilaterally, able to move all 4 extremities spontaneously. Skin: Intact, no rashes, no lesions, no erythema or jaundice noted Neuro: AOx1, bilateral upper extremity tremors, hallucinations, mumbling words nonsense, confused difficult to perform a full neurological exam due to patient mental status, able to move all 4 extremities spontaneously Psych: Difficult to assess due to patient altered mental status Results Labs 01/12/25 05:32 01/12/25 05:32 Labs: Short CBC 01/11/25 01/12/25 Range/Units 22:07 05:32 WBC 8.8 8.9 (3.6-11.0) Thou/mm3 Hgb 12.9 12.4 (12.0-16.0) g/dL Hct 40.1 39.0 (36.0-46.0) % Plt Count 118 L 104 L (140-440) Thou/mm3 BMP 01/11/25 01/12/25 22:07 05:32 Sodium 138 136 Potassium 4.1 5.1 D Chloride 101 104 Carbon Dioxide 28.1 24.2 BUN 21 21 Creatinine 1.5 H 1.4 H Glucose 100 94 Calcium 9.1 8.5 Cardiac Enzymes 01/11/25 Range/Units 22:07 Troponin I 0.025 (0.0-0.045) ng/mL Liver Function 01/11/25 01/12/25 Range/Units 22:07 05:32 Total Bilirubin 0.4 0.4 (0.3-1.2) mg/dL AST 20 23 (0-34) U/L ALT < 7 L < 7 L (10-49) U/L Alkaline Phosphatase 52 44 L (46-116) U/L Albumin 3.9 3.7 (3.4-4.8) gm/dL Urine 01/11/25 Range/Units 00:30 Urine Color Lt-Yellow (Lt Yel-Yel) Urine Clarity Clear (Clear/Hazy) Urine pH 6.0 (5.0-7.0) Ur Specific [place] 1.010 (1.001-1.035) Urine Protein Negative (Neg - Trace) Urine Glucose (UA) Negative (Negative) ABG Interpretation ABG results: 01/12/25 03:25 ABG pH 7.30 L ABG pCO2 58 H ABG pO2 123 H ABG HCO3 28 H ABG O2 Saturation 99 H ABG Base Excess 1 Quality Measures Quality Measures VTE prophylaxis Advance care planning discussed with:: child Medications Home Medications and Allergies Home Medications ?Medication ?Instructions ?Recorded ?Confirmed ?Type Aspirin Ec * (ECOTRIN *) 81 mg PO QDAY ##0 08/14/17 12/14/24 History Levothyroxine * (SYNTHROID *) 50 mcg PO QDAY #0 tabs 08/14/17 12/14/24 History simvastatin 40 mg tablet (Zocor) 40 mg PO HS #0 tabs 08/14/17 12/14/24 History loratadine 10 mg tablet 10 mg PO QDAY 04/09/18 12/14/24 History estradiol 0.01% (0.1 mg/gram) 2 g vaginal DIRECTED 01/29/24 12/14/24 History vaginal cream (Estrace) albuterol sulfate 90 mcg/actuation 2 puff inhalation Q8H PRN 06/11/24 12/14/24 History aerosol inhaler ascorbic acid (vitamin C) 500 mg 500 mg PO QDAY 06/11/24 12/14/24 History capsule bumetanide 1 mg tablet 1 mg PO QDAY 06/11/24 12/14/24 History cranberry 500 mg capsule 500 mg PO QDAY 06/11/24 12/14/24 History gabapentin 300 mg capsule 300 mg PO TID 06/11/24 12/14/24 History meclizine 25 mg tablet 25 mg PO BID PRN 06/11/24 12/14/24 History nitrofurantoin 100 mg PO QDAY 06/11/24 12/14/24 History monohydrate/macrocrystals 100 mg capsule (Macrobid) propranolol 20 mg tablet 20 mg PO BID 06/11/24 12/14/24 History Allergies Allergy/AdvReac Type Severity Reaction Status Date / Time nitrofurantoin (From Allergy Intermediate Abdominal Verified 01/12/25 10:17 Macrobid) Pain macrobid Allergy Intermediate per Uncoded 01/12/25 10:17 patient family she has severe stomach Visit Medications Acetaminophen (Acetaminophen 325 Mg Tablet) 650 mg PO Q6H PRN PRN Reason: Fever >100.3 or pain 1-3 Stop: 02/11/25 03:31 Aspirin (Aspirin Ec 81 Mg Tabec) 81 mg PO QDAY [facility] Stop: 02/11/25 08:59 Atorvastatin Calcium (Atorvastatin Calcium 10 Mg Tablet) 40 mg PO HS [facility] Stop: 02/11/25 20:59 Carbidopa/Levodopa (Carbidopa/Levodopa 25/100 Mg Tablet) 1 tab PO TID [facility] Stop: 02/11/25 05:59 Clopidogrel Bisulfate (Clopidogrel Bisulfate 75 Mg Tablet) 75 mg PO QDAY [facility] Stop: 02/11/25 08:59 Heparin Sodium (Porcine) (Heparin Sod Inj 5000 Unit/Ml Vial) 5,000 unit SC Q8HR [facility] Stop: 01/26/25 05:59 Last Admin: 01/12/25 05:44 Dose: 5,000 unit Lactated Ringer's (Lactated Ringers) 500 mls @ 75 mls/hr IV .Q6H40M ONE Stop: 01/12/25 10:49 Last Admin: 01/12/25 04:49 Dose: 75 mls/hr Piperacillin/Tazobactam/Dextrose (Zosyn) 3.375 gm in 50 mls @ 12.5 mls/hr IV Q8HR [facility] Stop: 01/19/25 13:59 Ondansetron HCl (Ondansetron Inj 2 Mg/Ml Inj 2 Ml) 4 mg IV Q6H PRN; Protocol PRN Reason: NAUSEA OR VOMITING Stop: 02/11/25 03:31 Oxycodone/Acetaminophen (Oxycodone/Apap 5/325 Tablet) 1 tab PO Q6H PRN PRN Reason: PAIN SCALE 4-10(Mod-Sev Stop: 01/17/25 03:31 Discontinued Medications Aspirin (Aspirin Ec 81 Mg Tabec) 81 mg PO X1 ONE Stop: 01/12/25 02:33 Last Admin: 01/12/25 03:06 Dose: 81 mg Clopidogrel Bisulfate (Clopidogrel Bisulfate 75 Mg Tablet) 75 mg PO X1 ONE Stop: 01/12/25 02:33 Last Admin: 01/12/25 03:06 Dose: 75 mg Ciprofloxacin/Dextrose (Cipro Ivpb) 400 mg in 200 mls @ 200 mls/hr IV Q12HR [facility] Stop: 01/19/25 05:46 Metronidazole (Flagyl 500 Mg Iv) 500 mg in 100 mls @ 200 mls/hr IV Q8HR [facility] Stop: 01/19/25 05:47 Piperacillin/Tazobactam/Dextrose (Zosyn) 3.375 gm in 50 mls @ 100 mls/hr IV X1 ONE Stop: 01/12/25 08:29 Assessment & Plan Plan #Altered mental status Patient presented altered mental status associated to hallucinations CT head showed Negative for acute hemorrhage, mass effect or midline shift brain MRI Prominent chronic microvascular white matter changes, no acute infarct, negative for acute hemorrhage, mass effect or midline shift. Patient received 2 doses of anticholinergic medications that can be related to patient altered mental status and hallucinations as well as medication-induced hallucinations to the patient takes daily carbidopa/levodopa for Parkinson disease Plan: ? Stop aspirin and plavix ? Continue atorvastatin 40 mg p.o. daily #Parkinson disease ? Continue home carbidopa-levodopa 1 tablet p.o. 3 times daily #Acute diverticulitis #STEPHENIE #History of hypothyroidism #Bilateral blindness Patient discussed with my attending Dr Genna Joya MD PGY-3 Disclaimer: Despite multiple revisions, due to the dictation software being used, the document bellow may not be free of grammatical errors including phonetic/typographic errors. However, this does not deter from our commitment to providing health care in the patient's best interest in mind. Attending Provider Attestation/Addendum I personally have seen and examined the patient at the bedside and agree with resident's findings, assessment and plan of care. Patient's mental status is a focal neurological deficit. Neurologically afocal on exam and her mental status is improving, close to baseline.
[2025-01-12] MEDS: PIPER/TAZO 3.375 GM PREMIX 3.375 GM/50 ML BAG IV ×2 (09:32→18:13)
[2025-01-12] MEDS: CARBIDOPA/LEVODOPA 25/100 MG TABLET 1 TAB PO ×3 (11:05→21:52)
[2025-01-12 11:24] LABS: Lactate (Lactic Acid) 1.4 mMol/L (0.4-2.0)
--- NOTE | 2025-01-12 12:05 | XR_ITS ---
Examination: CTA carotids with intravenous contrast CTA brain, head with intravenous contrast. 2-D sagittal, coronal reconstructions. 3-D reconstructions. Exam date and time: January 12, 2025 1224 hours INDICATIONS: Clinical diagnosis stroke, onset generalized weakness altered mental status beginning today CTDI: vol (mGy) 50.3 DLP: (mGycm) 392 Technique: Multiple CTA axial brain, head carotid images post intravenous contrast injection 70 cc, [id number]. 2-D sagittal, coronal reconstructions. 3-D reconstructions, 3-D post processing including vascular maximum intensity projection images. Low dose protocols were performed. One or more of the following dose reduction techniques were used; automated exposure control, adjustment of the mA and/or KV according to patient size, use of iterative reconstruction technique. Findings: No significant common carotid or carotid bifurcation stenoses Internal carotid arteries in the neck are intact Dominant left vertebral artery with no critical stenoses Intracranial vertebral arteries basilar artery and posterior cerebral branches do fill No large vessel occlusions involving M1 segments middle cerebral arteries middle cerebral artery trifurcation vessels are intercerebral arteries IMPRESSION: No significant neck arterial stenoses No cerebral large vessel arterial occlusions
--- NOTE | 2025-01-12 13:38 | PD.RESPRO ---
Documentation for date of: 01/12/25 Senior resident attestation: Patient is an 84-year-old female, past medical history hypertension, CHF, hypothyroidism, recurrent UTIs, dementia, parkinsonism, blindness of retinitis pigmentosa, was brought into the ER due to altered mental status, also hallucinations reported by family. Stroke alert was called in the ER, teleneuro was consulted, initially patient was started on aspirin and Plavix per attending recommendations. In-house neurologist Dr. Vail on saw the patient, patient had MRI brain done which was negative for acute stroke or hemorrhage. CTA was done which was negative for LVO. Per neurologist recommendations, discontinued aspirin and Plavix, continue on medications for parkinsonism. Also concern for acute diverticulitis given abdominal tenderness, pain and diarrhea. General surgeon Dr. Babin follow the patient, recommend no acute interventions, but getting GI consult for pneumobilia found on CT. Dr. Caldwell battery loader followed the patient, recommended getting an MRCP and a HIDA scan continue antibiotics and possible ERCP during this hospitalization. MRCP showed extrahepatic biliary dilatation with abrupt termination of distal common bile duct, recommended ERCP and biopsies to exclude malignant stricture distal common bile duct. #Acute toxic encephalopathy, likely secondary to medications #Acute diverticulitis #Pneumobilia #Acute stroke ruled out? #STEPHENIE #History of CHF #History of Parkinson disease #History of hypothyroidism #History of blindness Patient evaluated and examined at the bedside, plan of care discussed with rest of the team including my attending physician, except as noted. Quresh PGY2 Subjective Subjective Interval history: Patient is a 84-year-old female with a past medical history of hyperlipidemia, hypertension, CHF (?) following Dr. 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 Patient was admitted overnight night secondary to increasingly altered mental status that developed yesterday, per patient's daughter patient has been having hallucinations since responding back with nonsensical times. Overnight, patient's daughter became increasingly worried, after patient had a fall after missing the toilet as she was squatting down. Per daughter who witnessed the fall, stated she did not hit her head but rather developed lower extremity weakness. Per daughter also reports several episodes of diarrhea. Daughter denied melana or hematochezia, but stool was foul smelling. Denied greasy stool. Patient received lomotil (Diphenoxylate/Atropine) yesterday to help with the diarrhea. Patient has been taking Bactrim for 3 months. Per daughter, patient has history of CHF and follows doctor Eric. Exam Vital Signs Temp Pulse Resp BP Pulse Ox O2 Del Method O2 Flow Rate 98.3 F 76 20 125/64 995 H Room Air 3 01/12/25 11:49 01/12/25 11:49 01/12/25 11:49 01/12/25 11:49 01/12/25 11:49 01/12/25 11:49 01/12/25 06:55 Narrative Exam General Appearance: Alert & Oriented X1, well-nourished female who is lying in bed in mild distress HEENT: Skull symmetrical and atraumatic. Conjunctivae pin and moist. Pupils equal, round, reactive to light and accommodation (PERRL). External ear without lesion or discharge. Straight, nares patient, mucosa pink, no discharge. No thyroid nodule appreciated. No cervical lymphadenopathy. Cardio: Normal Rate and Rhythm with S1 and S2 heart sounds. No murmurs or extra heart sounds auscultated. No bruits on carotid auscultation. No peripheral edema or cyanosis. Lungs: Symmetric with good expansion. Chest and back non-tender. Breath sounds vesicular without crackles, wheezing or rhonchi Abdomen: diffuse tenderness, Non-distended, hypo-reactive bowel sounds Neuro: YES Alert, Yes cooperative, Yes oriented to person, No place, and No time. nonsensical . CN grossly intact. Upper motor strength 5/5 and Lower motor strength 5/5. Sensation intact. Objective Labs 01/13/25 05:27 01/13/25 05:27 Labs: Laboratory Results - last 24 hr 01/11/25 01/11/25 01/11/25 00:30 21:40 22:07 WBC 8.8 RBC 3.94 L Hgb 12.9 Hct 40.1 MCV 102 H MCH 32.7 MCHC 32.2 RDW Std Deviation 53.1 H Plt Count 118 L Neut % (Auto) 84 H Lymph % (Auto) 7 L [place] % (Auto) 8 Eos % (Auto) 1 Baso % (Auto) 0 Neut # (Auto) 7.4 Lymph # (Auto) 0.6 L [place] # (Auto) 0.7 Eos # (Auto) 0.1 Baso # (Auto) 0.0 Immature Gran # (Auto) 0.06 H Absolute Nucleated RBC 0.00 Immature Gran % 1 H Nucleated RBC % 0 PT 11.7 INR 1.1 APTT 24.7 Puncture Site ABG pH ABG pCO2 ABG pO2 ABG HCO3 ABG O2 Saturation ABG Base Excess FiO2 Sodium 138 Potassium 4.1 Chloride 101 Carbon Dioxide 28.1 Anion Gap 9 BUN 21 Creatinine 1.5 H Estim Creat Clear Calc 23.9 L eGFR 34 L BUN/Creatinine Ratio [address] Glu mg/dL Hemoglobin A1c Calculated Osmolality 278 Lactic Acid Calcium 9.1 Corrected Calcium 9.2 Phosphorus Magnesium 2.0 Total Bilirubin 0.4 AST 20 ALT < 7 L Alkaline Phosphatase 52 Ammonia Lactate Dehydrogenase 191 Troponin I 0.025 B-Natriuretic Peptide 105 H Total Protein 6.5 Albumin 3.9 Globulin 2.6 Albumin/Globulin Ratio 1.5 Triglycerides Cholesterol LDL Cholesterol, Calc HDL Cholesterol Cholesterol/HDL Ratio Procalcitonin TSH Free T4 Ur Collection Type Clean Catch Urine Color Lt-Yellow Urine Clarity Clear Urine pH 6.0 Ur Specific [place] 1.010 Urine Protein Negative Urine Glucose (UA) Negative Urine Ketones Negative Urine Blood 1+ A Urine Nitrite Negative Urine Bilirubin Negative Urine Urobilinogen (Auto) Negative Ur Leukocyte Esterase Negative Urine RBC 3 Urine WBC 0 Ur Squamous Epith Cells < 1 Urine Bacteria Rare Urine Opiates Screen Negative Urine Fentanyl Screen Negative Ur Barbiturates Screen Negative U Amphetamin/Meth Scrn Negative U Benzodiazepines Scrn Negative U Cocaine Metab Screen Negative U Marijuana (THC) Screen Negative 01/12/25 01/12/25 01/12/25 02:27 03:25 05:32 WBC 8.9 RBC 3.77 L Hgb 12.4 Hct 39.0 MCV 103 H MCH 32.9 MCHC 31.8 RDW Std Deviation 53.1 H Plt Count 104 L Neut % (Auto) 74 Lymph % (Auto) 11 [place] % (Auto) 13 H Eos % (Auto) 1 Baso % (Auto) 0 Neut # (Auto) 6.6 Lymph # (Auto) 1.0 [place] # (Auto) 1.2 H Eos # (Auto) 0.1 Baso # (Auto) 0.0 Immature Gran # (Auto) 0.05 H Absolute Nucleated RBC 0.00 Immature Gran % 1 H Nucleated RBC % 0 PT INR APTT Puncture Site Left Radial ABG pH 7.30 L ABG pCO2 58 H ABG pO2 123 H ABG HCO3 28 H ABG O2 Saturation 99 H ABG Base Excess 1 FiO2 21 Sodium 136 Potassium 5.1 D Chloride 104 Carbon Dioxide 24.2 Anion Gap 8 BUN 21 Creatinine 1.4 H Estim Creat Clear Calc 25.7 L eGFR 37 L BUN/Creatinine Ratio [address] Glu mg/dL 103 Hemoglobin A1c 5.2 Calculated Osmolality 274 L Lactic Acid 3.0 H Calcium 8.5 Corrected Calcium 8.7 Phosphorus 5.2 H Magnesium 2.0 Total Bilirubin 0.4 AST 23 ALT < 7 L Alkaline Phosphatase 44 L Ammonia < 10 L Lactate Dehydrogenase Troponin I B-Natriuretic Peptide Total Protein 5.8 Albumin 3.7 Globulin 2.1 L Albumin/Globulin Ratio 1.8 Triglycerides 120 Cholesterol LDL Cholesterol, Calc HDL Cholesterol Cholesterol/HDL Ratio Procalcitonin TSH 4.07 Free T4 1.24 Ur Collection Type Urine Color Urine Clarity Urine pH Ur Specific [place] Urine Protein Urine Glucose (UA) Urine Ketones Urine Blood Urine Nitrite Urine Bilirubin Urine Urobilinogen (Auto) Ur Leukocyte Esterase Urine RBC Urine WBC Ur Squamous Epith Cells Urine Bacteria Urine Opiates Screen Urine Fentanyl Screen Ur Barbiturates Screen U Amphetamin/Meth Scrn U Benzodiazepines Scrn U Cocaine Metab Screen U Marijuana (THC) Screen 01/12/25 01/12/25 01/12/25 05:32 05:32 05:32 WBC RBC Hgb Hct MCV MCH MCHC RDW Std Deviation Plt Count Neut % (Auto) Lymph % (Auto) [place] % (Auto) Eos % (Auto) Baso % (Auto) Neut # (Auto) Lymph # (Auto) [place] # (Auto) Eos # (Auto) Baso # (Auto) Immature Gran # (Auto) Absolute Nucleated RBC Immature Gran % Nucleated RBC % PT INR APTT Puncture Site ABG pH ABG pCO2 ABG pO2 ABG HCO3 ABG O2 Saturation ABG Base Excess FiO2 Sodium Potassium Chloride Carbon Dioxide Anion Gap BUN Creatinine Estim Creat Clear Calc eGFR BUN/Creatinine Ratio Glucose Estimated Ave Glu mg/dL Hemoglobin A1c Calculated Osmolality Lactic Acid Calcium Corrected Calcium Phosphorus Magnesium Total Bilirubin AST ALT Alkaline Phosphatase Ammonia Lactate Dehydrogenase Troponin I B-Natriuretic Peptide Total Protein Albumin Globulin Albumin/Globulin Ratio Triglycerides Cancelled Cholesterol 106 L Cancelled LDL Cholesterol, Calc 44 Cancelled HDL Cholesterol 38 L Cholesterol/HDL Ratio Procalcitonin TSH Free T4 Ur Collection Type Urine Color Urine Clarity Urine pH Ur Specific [place] Urine Protein Urine Glucose (UA) Urine Ketones Urine Blood Urine Nitrite Urine Bilirubin Urine Urobilinogen (Auto) Ur Leukocyte Esterase Urine RBC Urine WBC Ur Squamous Epith Cells Urine Bacteria Urine Opiates Screen Urine Fentanyl Screen Ur Barbiturates Screen U Amphetamin/Meth Scrn U Benzodiazepines Scrn U Cocaine Metab Screen U Marijuana (THC) Screen 01/12/25 01/12/25 01/12/25 05:32 05:32 11:14 WBC RBC Hgb Hct MCV MCH MCHC RDW Std Deviation Plt Count Neut % (Auto) Lymph % (Auto) [place] % (Auto) Eos % (Auto) Baso % (Auto) Neut # (Auto) Lymph # (Auto) [place] # (Auto) Eos # (Auto) Baso # (Auto) Immature Gran # (Auto) Absolute Nucleated RBC Immature Gran % Nucleated RBC % PT INR APTT Puncture Site ABG pH ABG pCO2 ABG pO2 ABG HCO3 ABG O2 Saturation ABG Base Excess FiO2 Sodium Potassium Chloride Carbon Dioxide Anion Gap BUN Creatinine Estim Creat Clear Calc eGFR BUN/Creatinine Ratio Glucose Estimated Ave Glu mg/dL Hemoglobin A1c Calculated Osmolality Lactic Acid 1.4 Calcium Corrected Calcium Phosphorus Magnesium Total Bilirubin AST ALT Alkaline Phosphatase Ammonia Lactate Dehydrogenase Troponin I B-Natriuretic Peptide Total Protein Albumin Globulin Albumin/Globulin Ratio Triglycerides Cholesterol LDL Cholesterol, Calc HDL Cholesterol Cancelled Cholesterol/HDL Ratio 2.8 L Cancelled Procalcitonin 8.65 H TSH Free T4 Ur Collection Type Urine Color Urine Clarity Urine pH Ur Specific [place] Urine Protein Urine Glucose (UA) Urine Ketones Urine Blood Urine Nitrite Urine Bilirubin Urine Urobilinogen (Auto) Ur Leukocyte Esterase Urine RBC Urine WBC Ur Squamous Epith Cells Urine Bacteria Urine Opiates Screen Urine Fentanyl Screen Ur Barbiturates Screen U Amphetamin/Meth Scrn U Benzodiazepines Scrn U Cocaine Metab Screen U Marijuana (THC) Screen ABG Interpretation ABG results: 01/12/25 03:25 ABG pH 7.30 L ABG pCO2 58 H ABG pO2 123 H ABG HCO3 28 H ABG O2 Saturation 99 H ABG Base Excess 1 Quality Measures Quality Measures VTE prophylaxis Advance care planning discussed with:: patient Assessment & Plan Assessment Current Active Medications: Generic Name Dose Route Start Last Admin Trade Name Freq PRN Reason Stop Dose Admin Acetaminophen 650 mg 01/12/25 03:32 Acetaminophen 325 Mg Tablet PO 02/11/25 03:31 Q6H PRN Fever >100.3 or pain 1-3 Aspirin 81 mg 01/12/25 09:00 01/12/25 09:25 Aspirin Ec 81 Mg Tabec PO 02/11/25 08:59 81 mg QDAY GIFTY Administration Atorvastatin Calcium 40 mg 01/12/25 21:00 Atorvastatin Calcium 10 Mg Tablet PO 02/11/25 20:59 HS GIFTY Carbidopa/Levodopa 1 tab 01/12/25 06:00 01/12/25 11:05 Carbidopa/Levodopa 25/100 Mg Tablet PO 02/11/25 05:59 1 tab TID GIFTY Administration Clopidogrel Bisulfate 75 mg 01/12/25 09:00 01/12/25 09:25 Clopidogrel Bisulfate 75 Mg Tablet PO 02/11/25 08:59 75 mg QDAY GIFTY Administration Heparin Sodium (Porcine) 5,000 unit 01/12/25 06:00 01/12/25 05:44 Heparin Sod Inj 5000 Unit/Ml Vial SC 01/26/25 05:59 5,000 unit Q8HR GIFTY Administration Piperacillin/Tazobactam/Dextrose 3.375 gm in 50 mls @ 12.5 mls/hr 01/12/25 14:00 Zosyn IV 01/19/25 13:59 Q8HR GIFTY Ondansetron HCl 4 mg 01/12/25 03:32 Ondansetron Inj 2 Mg/Ml Inj 2 Ml IV 02/11/25 03:31 Q6H PRN NAUSEA OR VOMITING Protocol Oxycodone/Acetaminophen 1 tab 01/12/25 03:32 Oxycodone/Apap 5/325 Tablet PO 01/17/25 03:31 Q6H PRN PAIN SCALE 4-10(Mod-Sev Plan Patient is a 84-year-old female with a past medical history of hyperlipidemia, hypertension, CHF (?) following Dr. 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 Patient was admitted overnight night secondary to increasingly altered mental status that developed yesterday, per patient's daughter patient has been having hallucinations since responding back with nonsensical times. Patient was admitted on 01/11/2025 for acute encephalopathy and stroke work up. #Acute encphalopathy likely multi-factorial, improving #History of dementia #Stroke ruled out Given CT head is negative for acute hemorrhage and MRI showing prominent chronic microvascular white matter, unlikely stroke. Per daughter, waxes and waning and may have underlying dementia. In addition, patient was given lomotil which contains diphenoxylate and atropine which may cause have caused hallucinations and altered mental status as reported by daughter. Plan: - Head of Bed 30 Degrees -Euglycemia and Avoid Hyperthermia (PRN Acetaminophen) -Aspirin 81 mg daily and Clopidogrel 75 mg daily--D/C -Genaro Feliciano, Dr. Mcclain, apprecaite recommendtions. #Acute diverticulitis #Diarrhea Patient's daughter reports that patient has been having abdominal pain the day before. CT of the abdomen showed acute colonic diverticulitis, pneumobilia. Given diffuse abdominal pain, this is likely secondary to diverticulitis vs c. diff given chronic use of antibiotics. Plan: - ciprofloxacin 500 mg q12hr 01/12/25-01/12/2025 - metronidazole 400 mg q8 hr 01/12/25-01/12/2025 -Zosyn 01/12/2025 - GI consult #Pneumobilia #history of cholecystectomy Per daughter, previous cholecystectomy in w/ complications. AST and ALT within normal limits. 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 MRCP showed exxtrahepatic biliary tract dilation w/ abrupt terminaiton of the distal common bile duct. Pending HIDA. Plan -no acute intervention, miguel chronic -HIDA-pending -Consult General surgery, Dr. Babin appreciate recommendtions. -Consult GI, Dr. Caldwell, appreciate recommendations. #STEPHENIE Could be in the setting if poor oral intake and acute infection likely pre-renal. Creatinine 1.5, baseline 0.9 in September 2024 Plan: - monitor daily CMP - avoid nephrotoxic agents - Clear Liquid Diet #CHF (?) Patient follows Dr. Reyes as outpatient. No Echo on file. Possible home medication of Bumex 0.5 mg once per day and Propranolol 20 mg BID. Given soft blood pressure and pre-renal stephenie, holding bumex and hodling propranol. Plan -1800 restriction -daily weight checks -consider resuming AM #History of Parkinson's disease Plan: - resume carbidopa-levodopa #History of hypothyroidism Plan: - consider resume home levothyroxine #Bilateral blindness Due retinitis pigmentosa. Plan: - fall precations Health maintenance: FEN: Clear liquid diet DVT prophylaxis: heparin GI prophylaxis: none Dispo: telemetry CODE STATUS: Full code - The patient's plan was discussed with attending Dr. Tate and senior residents Dr. Nataly Middleton MD PGY1 Internal Medicine
--- NOTE | 2025-01-12 14:21 | PD.SURCONS ---
HPI Consult details Consult date: 01/12/25 Reason for consultation narrative: Patient was seen in consultation because of #2 abulia History of present illness: Patient does not have any complaints of abdominal pain or fever or chills. She came here with the diarrhea following Toradol injection given by her family doctor yesterday. She does not complain of any weakness of any of the extremities. Her daughter gives a history and she tells me that she occasionally has dementia symptoms. Patient does not have any headache Past Medical History Past Medical History CARDIAC: Positive Hypercholesterolemia and Hypertension; Negative Congestive Heart Failure RESPIRATORY: Positive Respiratory Disorders (ASTHMA); Negative Chronic Obstructive Pulmonary Disease (COPD) GASTROINTESTINAL: Positive Gall Bladder Disease GENITOURINARY: Negative Renal Disease ENDOCRINE: Negative Diabetes Mellitus Type 1 or Diabetes Mellitus Type 2 Social History SMOKING STATUS: Never smoker Meds Home Medications and Allergies Home Medications ?Medication ?Instructions ?Recorded ?Confirmed ?Type Aspirin Ec * (ECOTRIN *) 81 mg PO QDAY ##0 08/14/17 12/14/24 History Levothyroxine * (SYNTHROID *) 50 mcg PO QDAY #0 tabs 08/14/17 12/14/24 History simvastatin 40 mg tablet (Zocor) 40 mg PO HS #0 tabs 08/14/17 12/14/24 History loratadine 10 mg tablet 10 mg PO QDAY 04/09/18 12/14/24 History estradiol 0.01% (0.1 mg/gram) 2 g vaginal DIRECTED 01/29/24 12/14/24 History vaginal cream (Estrace) albuterol sulfate 90 mcg/actuation 2 puff inhalation Q8H PRN 06/11/24 12/14/24 History aerosol inhaler ascorbic acid (vitamin C) 500 mg 500 mg PO QDAY 06/11/24 12/14/24 History capsule bumetanide 1 mg tablet 1 mg PO QDAY 06/11/24 12/14/24 History cranberry 500 mg capsule 500 mg PO QDAY 06/11/24 12/14/24 History gabapentin 300 mg capsule 300 mg PO TID 06/11/24 12/14/24 History meclizine 25 mg tablet 25 mg PO BID PRN 06/11/24 12/14/24 History nitrofurantoin 100 mg PO QDAY 06/11/24 12/14/24 History monohydrate/macrocrystals 100 mg capsule (Macrobid) propranolol 20 mg tablet 20 mg PO BID 06/11/24 12/14/24 History Allergies Allergy/AdvReac Type Severity Reaction Status Date / Time nitrofurantoin (From Allergy Intermediate Abdominal Verified 01/12/25 10:17 Macrobid) Pain macrobid Allergy Intermediate per Uncoded 01/12/25 10:17 patient family she has severe stomach Exam Vital Signs Temp Pulse Resp BP Pulse Ox O2 Del Method O2 Flow Rate 98.3 F 76 20 125/64 995 H Room Air 3 01/12/25 11:49 01/12/25 11:49 01/12/25 11:49 01/12/25 11:49 01/12/25 11:49 01/12/25 11:49 01/12/25 06:55 Narrative Exam Physical examination revealed a slightly obese female who appeared to be in her age of 84 years. She is 5 foot 6 inches tall weighing 160 pounds. Her vital signs are normal Constitutional Constitutional: no acute distress Routine Abdominal Exam Comments: Examination of the abdomen showed no tenderness anywhere Routine Rectal Exam Comments: Deferred Routine Extremities Exam Comments: Within normal limits Routine Neurological Exam Comments: Patient does not seem to have any signs of CVA or lateralization. She is moving all 4 extremities and does not have any facial changes to suggest CVA Results Results: Laboratory Laboratory Narrative: Patient's laboratory work is within normal limits. Patient's liver enzymes are not elevated. Results: Imaging Imaging narrative: CT scan showed pneumobilia and absent gallbladder. MRCP showed a dilated intrahepatic duct and common bile duct with an abrupt and suggesting some abnormality in the common bile duct. Assessment & Plan Additional Assessment Additional comments: Impression: The patient does not have any evidence of surgical problem. Obviously she needs evaluation of the common bile duct as recommended by the radiologist after MRCP Plan Plan: We shall get senior vice president & general counsel to follow the patient to see whether she will require ERCP. Thank you very much
--- NOTE | 2025-01-12 16:09 | PCS.ST ---
Assisted PSL patient with swallow eval.
--- NOTE | 2025-01-12 16:12 | PD.IMCONS ---
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 CT of the head was concerning for possible increased microvascular disease in the left periventricular region versus acute ischemia. GI called for penumobilia cc:: cc: Violeta Tate MD Meds Home Medications and Allergies Home Medications ?Medication ?Instructions ?Recorded ?Confirmed ?Type Aspirin Ec * (ECOTRIN *) 81 mg PO QDAY ##0 08/14/17 12/14/24 History Levothyroxine * (SYNTHROID *) 50 mcg PO QDAY #0 tabs 08/14/17 12/14/24 History simvastatin 40 mg tablet (Zocor) 40 mg PO HS #0 tabs 08/14/17 12/14/24 History loratadine 10 mg tablet 10 mg PO QDAY 04/09/18 12/14/24 History estradiol 0.01% (0.1 mg/gram) 2 g vaginal DIRECTED 01/29/24 12/14/24 History vaginal cream (Estrace) albuterol sulfate 90 mcg/actuation 2 puff inhalation Q8H PRN 06/11/24 12/14/24 History aerosol inhaler ascorbic acid (vitamin C) 500 mg 500 mg PO QDAY 06/11/24 12/14/24 History capsule bumetanide 1 mg tablet 1 mg PO QDAY 06/11/24 12/14/24 History cranberry 500 mg capsule 500 mg PO QDAY 06/11/24 12/14/24 History gabapentin 300 mg capsule 300 mg PO TID 06/11/24 12/14/24 History meclizine 25 mg tablet 25 mg PO BID PRN 06/11/24 12/14/24 History nitrofurantoin 100 mg PO QDAY 06/11/24 12/14/24 History monohydrate/macrocrystals 100 mg capsule (Macrobid) propranolol 20 mg tablet 20 mg PO BID 06/11/24 12/14/24 History Allergies Allergy/AdvReac Type Severity Reaction Status Date / Time nitrofurantoin (From Allergy Intermediate Abdominal Verified 01/12/25 10:17 Macrobid) Pain macrobid Allergy Intermediate per Uncoded 01/12/25 10:17 patient family she has severe stomach Exam Vital Signs Temp Pulse Resp BP Pulse Ox O2 Del Method O2 Flow Rate 98.4 F 82 18 144/60 H 95 Room Air 3 01/12/25 15:11 01/12/25 15:11 01/12/25 15:11 01/12/25 15:11 01/12/25 15:11 01/12/25 15:11 01/12/25 06:55 Routine Abdominal Exam Comments: soft Results Labs 01/12/25 05:32 01/12/25 05:32 Labs: Short CBC 01/11/25 01/12/25 Range/Units 22:07 05:32 WBC 8.8 8.9 (3.6-11.0) Thou/mm3 Hgb 12.9 12.4 (12.0-16.0) g/dL Hct 40.1 39.0 (36.0-46.0) % Plt Count 118 L 104 L (140-440) Thou/mm3 BMP 01/11/25 01/12/25 22:07 05:32 Sodium 138 136 Potassium 4.1 5.1 D Chloride 101 104 Carbon Dioxide 28.1 24.2 BUN 21 21 Creatinine 1.5 H 1.4 H Glucose 100 94 Calcium 9.1 8.5 Cardiac Enzymes 01/11/25 Range/Units 22:07 Troponin I 0.025 (0.0-0.045) ng/mL Liver Function 01/11/25 01/12/25 Range/Units 22:07 05:32 Total Bilirubin 0.4 0.4 (0.3-1.2) mg/dL AST 20 23 (0-34) U/L ALT < 7 L < 7 L (10-49) U/L Alkaline Phosphatase 52 44 L (46-116) U/L Albumin 3.9 3.7 (3.4-4.8) gm/dL Urine 01/11/25 Range/Units 00:30 Urine Color Lt-Yellow (Lt Yel-Yel) Urine Clarity Clear (Clear/Hazy) Urine pH 6.0 (5.0-7.0) Ur Specific [place] 1.010 (1.001-1.035) Urine Protein Negative (Neg - Trace) Urine Glucose (UA) Negative (Negative) ABG Interpretation ABG results: 01/12/25 03:25 ABG pH 7.30 L ABG pCO2 58 H ABG pO2 123 H ABG HCO3 28 H ABG O2 Saturation 99 H ABG Base Excess 1 Assessment and Plan Additional Assessment & Plan Additional Plan: 84-year-old female with a previous medical history of dementia, Parkinson's disease, 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 CT of the head was concerning for possible increased microvascular disease in the left periventricular region versus acute ischemia. GI called for penumobilia MRCP showed Extrahepatic biliary tract dilatation with abrupt termination of the distal common bile duct Obtain HIDA scan Musa ABx Might consider ERCP Will follow
--- NOTE | 2025-01-12 16:14 | XR_ITS ---
Examination: Nuclear medicine hepatobiliary scan, static HIDA scan Date of exam: January 13, 2025 1226 hours INDICATIONS: Generalized weakness abdominal pain, history cholecystectomy with complications, extrahepatic biliary tract dilatation on MRCP January 12, 2025 Technique And Findings: 5.8 mCi 99m Hepatolite administered intravenously. Serial imaging obtained immediately through 60 minutes. Homogenous uptake in the liver. Common bile duct small bowel activity noted no gallbladder activity Impression: Dilated common bile duct isotope activity however isotope is present in the small bowel
[2025-01-12] MEDS: ACETAMINOPHEN 325 MG TABLET 650 MG PO (19:37)
[2025-01-12] MEDS: ATORVASTATIN CALCIUM 10 MG TABLET 40 MG PO (21:43)
[2025-01-13] VITALS (9 sets, daily range): BP systolic 133–189; BP diastolic 49–89; PULSE 73–92; RESP 12–97; TEMP 35.7–36.3; O2SAT 92–97; BMI 28.6
--- NOTE | 2025-01-13 | XR_ITS ---
Examination: MRI of brain without intravenous contrast. MRI brain with intravenous contrast. Date and time of exam:January 13, 2025 1025 hours INDICATIONS: Seizures beginning January 11, 2025 Technique: Multiple axial and sagittal images of the brain to been obtained. Siemens high-resolution 1.52 Arleen short bore scanner utilized. Sagittal sections, T1 weighted images, TR 500, TE 14, are performed. Axial sections proton-density and T2-weighted images have been obtained. Inversion recovery axial images, TR 9260, TE 111, TR 2500. Diffusion weighted images, axial sections, TR 4800, TE 128, B value 1000. Axial sections, ADC map, TR 4800, TE 128. Axial and coronal images were also obtained post 13 cc gadolinium administered intravenously. Findings:: Enlargement of the sella turcica is not present. The optic chiasm and infundibular stalk are not remarkable. There is no localized enlargement of the medulla or rufino. Fourth ventricle and cerebellar tonsils appear normal in position. No subacute area of hemorrhage density is seen. Fourth ventricle is midline. Mass in the cerebellopontine angle region is not evident. 7th and 8th nerve complexes exhibit symmetry Globes are symmetrical Orbital musculature including medial lateral rectus muscles do not exhibit abnormality Increased white matter signal is prominent Significant ethmoid left maxillary antral and sphenoid sinusitis Effacement of the cortical sulcal markings is not identified. Mass effect upon the ventricular system is not identified. Diffusion-weighted images demonstrate no focus of restricted diffusion Contrast images demonstrate no abnormal cerebellar or cerebral enhancement Impression: Negative for acute hemorrhage mass effect or midline shift No acute infarct Prominent chronic microvascular white matter change Significant sinusitis
--- NOTE | 2025-01-13 00:15 | RESP.EEG ---
EEG COMPLETED AND READY FOR REVIEW.
[2025-01-13] MEDS: CARBIDOPA/LEVODOPA 25/100 MG TABLET 1 TAB PO ×3 (05:41→21:04)
[2025-01-13] MEDS: PIPER/TAZO 3.375 GM PREMIX 3.375 GM/50 ML BAG IV ×3 (05:41→21:04)
[2025-01-13] MEDS: LEVOTHYROXINE SODIUM 25 MCG TABLET 50 MCG PO (05:41)
[2025-01-13] MEDS: HEPARIN SOD INJ 5000 UNIT/ML VIAL SC ×3 (05:41→21:04)
[2025-01-13 05:50] LABS: Basophils % (Auto) 0 % (0-2.5); Eosinophils # (Auto) 0.1 Thou/mm3 (0.0-0.5); Eosinophils % (Auto) 2 % (0-10); Hematocrit 36.6 % (36.0-46.0); Hemoglobin 12.1 g/dL (12.0-16.0); Immature Granulocytes % (Auto) 0 % (0-0); Immature Granulocytes Auto 0.02 Thou/mm3 (0.00-0.00); Lymphocytes # (Auto) 1.1 Thou/mm3 (1.0-4.8); Lymphocytes % (Auto) 17 % (10-50); Mean Corpuscular HGB Conc 33.1 g/dl (31.0-37.0); Mean Corpuscular Hemoglobin 33.1 pg (25.0-35.0); Mean Corpuscular Volume 100 fL (80-100); Monocytes # (Auto) 0.6 Thou/mm3 (0.0-0.8); Monocytes % (Auto) 9 % (0-12); Neutrophils # (Auto) 4.9 Thou/mm3 (1.8-7.7); Neutrophils % (Auto) 73 % (37-80); Nucleated Red Blood Cell % 0 /100 WBC (0); Platelet Count 125 Thou/mm3 (140-440); RDW Standard Deviation 51.1 fL (36.4-46.3); Red Blood Count 3.66 Miln/mm3 (4.00-5.20); White Blood Count 6.8 Thou/mm3 (3.6-11.0)
[2025-01-13 06:18] LABS: Alanine Aminotransferase < 7 U/L (10-49); Albumin, Serum 3.8 gm/dL (3.4-4.8); Albumin/Globulin Ratio 1.5 (1.2-2.2); Alkaline Phosphatase 41 U/L (46-116); Anion Gap 9 (7-16); Aspartate Amino Transferase 20 U/L (0-34); BUN/Creatinine Ratio 23 Ratio (12-20); Bilirubin,Total 0.5 mg/dL (0.3-1.2); Blood Urea Nitrogen 18 mg/dL (9-23); Calcium 8.8 mg/dL (8.3-10.6); Carbon Dioxide 29.4 mMol/L (20.0-31.0); Chloride 103 mMol/L (98-107); Creatinine (Component) 0.8 mg/dL (0.6-1.3); Estimated Creatinine Clearance 42.9 mL/min (>60); Globulin 2.5 gm/dL (2.3-3.5); Glucose 92 mg/dL (74-106); Magnesium 2.1 mg/dL (1.6-2.6); Osmolality,Calculated 283 (275-295); Phosphorous 3.4 mg/dL (2.4-5.1); Potassium 4.2 mMol/L (3.4-5.1); Sodium 141 mMol/L (136-145); Total Protein 6.3 gm/dL (5.7-8.2); eGFR > 60 See Note
[2025-01-13 09:45] LABS: Lactate (Lactic Acid) 0.9 mMol/L (0.4-2.0)
--- NOTE | 2025-01-13 10:09 | PC.SS ---
Initial assessment: this is 84yr old female admitted for stroke rule out. Patient information obtained by daughter Johnna at bed side. Patient lives at home with daughter Johnna, when Johnna works the patient stays with family caregiver. Per daughter, the patient is never home alone and requires assistance with her ADL's. Patient has a walker at home to assist with ambulation. Patient lives in mobile home, that is not equipped for a wheelchair space. Patient's PCP is Antonio Bustillos. Patients family is requesting short term SNF, preferred is [facility]. Patient's family is aware we are pending PT evaluation as patient's insurance with require authorization for SNF. Family verbalized understanding. Patient's emergency contact is Johnna ga. D/c plan: SNF Next of kin: Johnna ga
--- NOTE | 2025-01-13 10:19 | PC.SS ---
Addendum entered by ERIN Mast 01/13/25 10:22: PASRR completed. LV1. Original Note: SNF referral sent via [facility], pending PT evaluation.
--- NOTE | 2025-01-13 10:57 | PC.PT ---
attempted PT eval this AM. Pt downstairs for testing. PT will re-attempt eval at a later time
--- NOTE | 2025-01-13 11:15 | PD.RESPRO ---
Documentation for date of: 01/13/25 Subjective Subjective Interval history: No overnight acute events This morning at bedside, patient is back to mentation baseline per patient daughter. Patient is AO x 3, respond to questions properly, denied any acute complaint, stated that she is feeling well denied abdominal pain, diarrhea, chest pain, headache tremors or any other symptoms different than the mentioned above. Exam Vital Signs Temp Pulse Resp BP Pulse Ox O2 Del Method O2 Flow Rate 96.9 F 91 17 136/68 H 95 Room Air 3 01/13/25 08:00 01/13/25 09:57 01/13/25 09:57 01/13/25 08:00 01/13/25 08:00 01/13/25 08:00 01/12/25 06:55 Narrative Exam General: AO x 3, respond to questions properly HEENT: NC/AT, PERRL, EOMI, Good conjugate gaze, moist mucous membranes Neck: Supple, No masses, No adenopathy, carotid pulse 2+ bilaterally without bruits, No JVD, normal range of motion. Chest: Symmetrical, atraumatic, and with equal expansion , Nontender on palpation no deformity and no crepitus. CVS: S1 and S2 present, Regular rate and rhythm, No murmurs, rubs or gallops perceived during auscultation. Lungs: Normal respiratory effort, CTAB, no wheezing, rhonchi or rales perceived during auscultation, No intercostal or subcostal retraction. Abdomen : Soft, no tenderness to palpation, no guarding ,no rebound, +BS, no organomegaly. Extremities: No edema, warm well perfused, normal tone and ROM, strength and sensation intact, cap refill less than 2, +2 dp equal bilaterally, able to move all 4 extremities spontaneously. Skin: Intact, no rashes, no lesions, no erythema or jaundice noted Neuro: AOx3,able to move all 4 extremities spontaneously, nonfocal, GCS 15, gait not assessed, strength 5/5 bilateral upper and lower extremities, Babinski negative Psych: Appropriate mood and affect Objective Labs 01/13/25 05:27 01/13/25 05:27 Labs: Laboratory Results - last 24 hr 01/12/25 01/13/25 01/13/25 11:14 05:27 09:35 WBC 6.8 RBC 3.66 L Hgb 12.1 Hct 36.6 MCV 100 MCH 33.1 MCHC 33.1 RDW Std Deviation 51.1 H Plt Count 125 L D Neut % (Auto) 73 Lymph % (Auto) 17 [place] % (Auto) 9 Eos % (Auto) 2 Baso % (Auto) 0 Neut # (Auto) 4.9 Lymph # (Auto) 1.1 [place] # (Auto) 0.6 Eos # (Auto) 0.1 Baso # (Auto) 0.0 Immature Gran # (Auto) 0.02 H Absolute Nucleated RBC 0.00 Immature Gran % 0 Nucleated RBC % 0 Sodium 141 Potassium 4.2 D Chloride 103 Carbon Dioxide 29.4 Anion Gap 9 BUN 18 Creatinine 0.8 D Estim Creat Clear Calc 42.9 L eGFR > 60 BUN/Creatinine Ratio 23 H Glucose 92 Calculated Osmolality 283 Lactic Acid 1.4 0.9 Calcium 8.8 Corrected Calcium 9.0 Phosphorus 3.4 Magnesium 2.1 Total Bilirubin 0.5 AST 20 ALT < 7 L Alkaline Phosphatase 41 L Total Protein 6.3 Albumin 3.8 Globulin 2.5 Albumin/Globulin Ratio 1.5 ABG Interpretation ABG results: 01/12/25 03:25 ABG pH 7.30 L ABG pCO2 58 H ABG pO2 123 H ABG HCO3 28 H ABG O2 Saturation 99 H ABG Base Excess 1 Quality Measures Quality Measures VTE prophylaxis Advance care planning discussed with:: child Assessment & Plan Assessment Current Active Medications: Generic Name Dose Route Start Last Admin Trade Name Freq PRN Reason Stop Dose Admin Acetaminophen 650 mg 01/12/25 03:32 01/12/25 19:37 Acetaminophen 325 Mg Tablet PO 02/11/25 03:31 650 mg Q6H PRN Administration Fever >100.3 or pain 1-3 Atorvastatin Calcium 40 mg 01/12/25 21:00 01/12/25 21:43 Atorvastatin Calcium 10 Mg Tablet PO 02/11/25 20:59 40 mg HS GIFTY Administration Carbidopa/Levodopa 1 tab 01/12/25 06:00 01/13/25 05:41 Carbidopa/Levodopa 25/100 Mg Tablet PO 02/11/25 05:59 1 tab TID GIFTY Administration Heparin Sodium (Porcine) 5,000 unit 01/12/25 06:00 01/13/25 05:41 Heparin Sod Inj 5000 Unit/Ml Vial SC 01/26/25 05:59 5,000 unit Q8HR GIFTY Administration Piperacillin/Tazobactam/Dextrose 3.375 gm in 50 mls @ 12.5 mls/hr 01/12/25 14:00 01/13/25 05:41 Zosyn IV 01/19/25 13:59 12.5 mls/hr Q8HR GIFTY Administration Levothyroxine Sodium 50 mcg 01/13/25 06:00 01/13/25 05:41 Levothyroxine Sodium 25 Mcg Tablet PO 02/12/25 05:59 50 mcg ACBR GIFTY Administration Ondansetron HCl 4 mg 01/12/25 03:32 Ondansetron Inj 2 Mg/Ml Inj 2 Ml IV 02/11/25 03:31 Q6H PRN NAUSEA OR VOMITING Protocol Oxycodone/Acetaminophen 1 tab 01/12/25 03:32 Oxycodone/Apap 5/325 Tablet PO 01/17/25 03:31 Q6H PRN PAIN SCALE 4-10(Mod-Sev Plan #Altered mental status resolved Patient presented altered mental status associated to hallucinations CT head showed Negative for acute hemorrhage, mass effect or midline shift brain MRI Prominent chronic microvascular white matter changes, no acute infarct, negative for acute hemorrhage, mass effect or midline shift. Patient received 2 doses of anticholinergic medications that can be related to patient altered mental status and hallucinations as well as medication-induced hallucinations to the patient takes daily carbidopa/levodopa for Parkinson disease Plan: Per neurology standpoint patient can be discharged to the patient mentation is back to baseline ? Continue atorvastatin 40 mg p.o. daily ? Upon discharge patient can resume aspirin 81 mg p.o. daily #Parkinson disease ? Continue home carbidopa-levodopa 1 tablet p.o. 3 times daily #Acute diverticulitis #STEPHENIE #History of hypothyroidism #Bilateral blindness Patient discussed with my attending Dr Genna Joya MD PGY-3 Disclaimer: Despite multiple revisions, due to the dictation software being used, the document bellow may not be free of grammatical errors including phonetic/typographic errors. However, this does not deter from our commitment to providing health care in the patient's best interest in mind. Attending Provider Attestation/Addendum I personally seen and examined the patient at the bedside and I agree with resident's findings, assessment and plan of care. Patient is neurologically stable and is back to baseline, continue with current management including Sinemet.
[2025-01-13] MEDS: LABETALOL INJ 5 MG/ML VIAL 20 ML 10 MG IVP (12:35)
--- NOTE | 2025-01-13 12:48 | PD.RESPRO ---
Documentation for date of: 01/13/25 Senior resident attestation: Patient is an 84-year-old female, past medical history hypertension, CHF, hypothyroidism, recurrent UTIs, dementia, parkinsonism, blindness of retinitis pigmentosa, was brought into the ER due to altered mental status, also hallucinations reported by family. Stroke alert was called in the ER, teleneuro was consulted, initially patient was started on aspirin and Plavix per attending recommendations. In-house neurologist Dr. Vail on saw the patient, patient had MRI brain done which was negative for acute stroke or hemorrhage. CTA was done which was negative for LVO. Per neurologist recommendations, discontinued aspirin and Plavix, continue on medications for parkinsonism. Also concern for acute diverticulitis given abdominal tenderness, pain and diarrhea. General surgeon Dr. Babin follow the patient, recommend no acute interventions, but getting GI consult for pneumobilia found on CT. Dr. Caldwell concrete buster operator followed the patient, recommended getting an MRCP and a HIDA scan continue antibiotics and possible ERCP during this hospitalization. MRCP showed extrahepatic biliary dilatation with abrupt termination of distal common bile duct, recommended ERCP and biopsies to exclude malignant stricture distal common bile duct. #Acute toxic encephalopathy, likely secondary to medications #Acute diverticulitis - continue antibiotics, advance diet as tolerated. #Pneumobilia #Ruled out Acute Stroke- MRI peggy negative for acute stroke #STEPHENIE #History of CHF #History of Parkinson disease #History of hypothyroidism #History of blindness Patient evaluated and examined at the bedside, plan of care discussed with rest of the team including my attending physician, except as noted. Nataly PGY2 Subjective Subjective Interval history: No overnight events. Patient examined at bedside. Patient alert and orientated X 3 which is an improvement from admission. Patient complained of mild abdominal tenderness but improved. No chest pain. No SOB. No bowel movements recorded overnight but remained NPO for HIDA scan-->transition back to clear liquids and advance diet. Exam Vital Signs Temp Pulse Resp BP Pulse Ox O2 Del Method O2 Flow Rate 96.9 F 92 17 189/86 H 95 Room Air 3 01/13/25 08:00 01/13/25 12:35 01/13/25 09:57 01/13/25 12:35 01/13/25 08:00 01/13/25 08:00 01/12/25 06:55 Narrative Exam General Appearance: Alert & Oriented X3, well-nourished female who is lying in bed in mild distress HEENT: Skull symmetrical and atraumatic. Conjunctivae pin and moist. Pupils equal, round, reactive to light and accommodation (PERRL). External ear without lesion or discharge. Straight, nares patient, mucosa pink, no discharge. No thyroid nodule appreciated. No cervical lymphadenopathy. Cardio: Normal Rate and Rhythm with S1 and S2 heart sounds. No murmurs or extra heart sounds auscultated. No bruits on carotid auscultation. No peripheral edema or cyanosis. Lungs: Symmetric with good expansion. Chest and back non-tender. Breath sounds vesicular without crackles, wheezing or rhonchi Abdomen: non tenderness, Non-distended, hyper-reactive bowel sounds Neuro: YES Alert, Yes cooperative, Yes oriented to person, YES place, and Yes time. nonsensical . CN grossly intact. Upper motor strength 5/5 and Lower motor strength 5/5. Sensation intact. Objective Labs 01/13/25 05:27 01/13/25 05:27 Labs: Laboratory Results - last 24 hr 01/13/25 01/13/25 05:27 09:35 WBC 6.8 RBC 3.66 L Hgb 12.1 Hct 36.6 MCV 100 MCH 33.1 MCHC 33.1 RDW Std Deviation 51.1 H Plt Count 125 L D Neut % (Auto) 73 Lymph % (Auto) 17 [place] % (Auto) 9 Eos % (Auto) 2 Baso % (Auto) 0 Neut # (Auto) 4.9 Lymph # (Auto) 1.1 [place] # (Auto) 0.6 Eos # (Auto) 0.1 Baso # (Auto) 0.0 Immature Gran # (Auto) 0.02 H Absolute Nucleated RBC 0.00 Immature Gran % 0 Nucleated RBC % 0 Sodium 141 Potassium 4.2 D Chloride 103 Carbon Dioxide 29.4 Anion Gap 9 BUN 18 Creatinine 0.8 D Estim Creat Clear Calc 42.9 L eGFR > 60 BUN/Creatinine Ratio 23 H Glucose 92 Calculated Osmolality 283 Lactic Acid 0.9 Calcium 8.8 Corrected Calcium 9.0 Phosphorus 3.4 Magnesium 2.1 Total Bilirubin 0.5 AST 20 ALT < 7 L Alkaline Phosphatase 41 L Total Protein 6.3 Albumin 3.8 Globulin 2.5 Albumin/Globulin Ratio 1.5 ABG Interpretation ABG results: 01/12/25 03:25 ABG pH 7.30 L ABG pCO2 58 H ABG pO2 123 H ABG HCO3 28 H ABG O2 Saturation 99 H ABG Base Excess 1 Quality Measures Quality Measures VTE prophylaxis Advance care planning discussed with:: patient Assessment & Plan Assessment Current Active Medications: Generic Name Dose Route Start Last Admin Trade Name Freq PRN Reason Stop Dose Admin Acetaminophen 650 mg 01/12/25 03:32 01/12/25 19:37 Acetaminophen 325 Mg Tablet PO 02/11/25 03:31 650 mg Q6H PRN Administration Fever >100.3 or pain 1-3 Atorvastatin Calcium 40 mg 01/12/25 21:00 01/12/25 21:43 Atorvastatin Calcium 10 Mg Tablet PO 02/11/25 20:59 40 mg HS GIFTY Administration Carbidopa/Levodopa 1 tab 01/12/25 06:00 01/13/25 05:41 Carbidopa/Levodopa 25/100 Mg Tablet PO 02/11/25 05:59 1 tab TID GIFTY Administration Heparin Sodium (Porcine) 5,000 unit 01/12/25 06:00 01/13/25 05:41 Heparin Sod Inj 5000 Unit/Ml Vial SC 01/26/25 05:59 5,000 unit Q8HR GIFTY Administration Piperacillin/Tazobactam/Dextrose 3.375 gm in 50 mls @ 12.5 mls/hr 01/12/25 14:00 01/13/25 05:41 Zosyn IV 01/19/25 13:59 12.5 mls/hr Q8HR GIFTY Administration Levothyroxine Sodium 50 mcg 01/13/25 06:00 01/13/25 05:41 Levothyroxine Sodium 25 Mcg Tablet PO 02/12/25 05:59 50 mcg ACBR GIFTY Administration Ondansetron HCl 4 mg 01/12/25 03:32 Ondansetron Inj 2 Mg/Ml Inj 2 Ml IV 02/11/25 03:31 Q6H PRN NAUSEA OR VOMITING Protocol Oxycodone/Acetaminophen 1 tab 01/12/25 03:32 Oxycodone/Apap 5/325 Tablet PO 01/17/25 03:31 Q6H PRN PAIN SCALE 4-10(Mod-Sev Plan Patient is a 84-year-old female with a past medical history of hyperlipidemia, hypertension, CHF (?) following Dr. 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 Patient was admitted overnight night secondary to increasingly altered mental status that developed yesterday, per patient's daughter patient has been having hallucinations since responding back with nonsensical times. Patient was admitted on 01/11/2025 for acute encephalopathy and stroke work up. #Acute diverticulitis #Diarrhea Patient's daughter reports that patient has been having abdominal pain the day before. CT of the abdomen showed acute colonic diverticulitis, pneumobilia. Given diffuse abdominal pain, this is likely secondary to diverticulitis vs c. diff given chronic use of antibiotics. Plan: - ciprofloxacin 500 mg q12hr 01/12/25-01/12/2025 - metronidazole 400 mg q8 hr 01/12/25-01/12/2025 -Zosyn 01/12/2025 - GI consult #Acute toxic encphalopathy likely multi-factorial, improved #History of dementia #Stroke, ruled out Given CT head is negative for acute hemorrhage and MRI showing prominent chronic microvascular white matter, unlikely stroke. Per daughter, waxes and waning and may have underlying dementia. In addition, patient was given lomotil which contains diphenoxylate and atropine which may cause have caused hallucinations and altered mental status as reported by daughter. Plan: - Head of Bed 30 Degrees -Euglycemia and Avoid Hyperthermia (PRN Acetaminophen) -Aspirin 81 mg daily and Clopidogrel 75 mg daily--D/C -Dr. Johny Crenshaw, apprecaite recommendtions. #Pneumobilia #history of cholecystectomy Per daughter, previous cholecystectomy in w/ complications. AST and ALT within normal limits. 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 MRCP showed exxtrahepatic biliary tract dilation w/ abrupt terminaiton of the distal common bile duct. HIDA indicated partial ostruction within biliary system as indicated in HIDA, pending GI recommendations. HIDA: Dilated common bile duct isotope activity however isotope is present in the small bowel Plan -no acute intervention, miguel chronic -Consult General surgery, Dr. Babin appreciate recommendtions. -Consult GI, Dr. Caldwell, appreciate recommendations. #STEPHENIE, resolved. Could be in the setting if poor oral intake and acute infection likely pre-renal. Creatinine 1.5, baseline 0.9 in September 2024 Plan: - monitor daily CMP - avoid nephrotoxic agents - Clear Liquid Diet #Possible CHF, less likely Unlikely patinet has congestive heart failure as per cardiology there is no history of CHF. Pateint appeared hypovolemic on presentation, orthopnea noted, and no JVD noted. Clincally does not present as CHF picture Plan -contiue to monitor #History of Parkinson's disease Plan: - resume carbidopa-levodopa #History of hypothyroidism Plan: - consider resume home levothyroxine #Bilateral blindness Due retinitis pigmentosa. Plan: - fall precations Health maintenance: FEN: NPO->Advanced Clear liquid diet DVT prophylaxis: heparin GI prophylaxis: none Dispo: telemetry CODE STATUS: Full code - The patient's plan was discussed with attending Dr. Tate and senior residents Dr. Nataly Middleton MD PGY1 Internal Medicine
[2025-01-13 15:21] LABS: Lactate (Lactic Acid) 1.6 mMol/L (0.4-2.0)
[2025-01-13] MEDS: ACETAMINOPHEN 325 MG TABLET 650 MG PO (17:12)
[2025-01-13] MEDS: ATORVASTATIN CALCIUM 10 MG TABLET 40 MG PO (20:05)
[2025-01-13] MEDS: PROPRANOLOL 10 MG TABLET 20 MG PO (20:05)
[2025-01-14] VITALS (10 sets, daily range): BP systolic 164–187; BP diastolic 75–92; PULSE 74–97; RESP 16–96; TEMP 36.1–36.9; O2SAT 93–96; BMI 27.6; BMI 11.0
[2025-01-14] MEDS: hydrALAZINE INJ 20 MG/ML VIAL 10 MG IV (02:37)
[2025-01-14] MEDS: ACETAMINOPHEN 325 MG TABLET 650 MG PO (03:31)
[2025-01-14] MEDS: LEVOTHYROXINE SODIUM 25 MCG TABLET 50 MCG PO (05:12)
[2025-01-14] MEDS: PIPER/TAZO 3.375 GM PREMIX 3.375 GM/50 ML BAG IV ×2 (05:12→15:29)
[2025-01-14] MEDS: CARBIDOPA/LEVODOPA 25/100 MG TABLET 1 TAB PO ×2 (05:12→15:28)
[2025-01-14] MEDS: HEPARIN SOD INJ 5000 UNIT/ML VIAL SC ×2 (05:12→15:28)
[2025-01-14 05:39] LABS: Basophils % (Auto) 0 % (0-2.5); Eosinophils # (Auto) 0.1 Thou/mm3 (0.0-0.5); Eosinophils % (Auto) 1 % (0-10); Hematocrit 42.1 % (36.0-46.0); Hemoglobin 14.4 g/dL (12.0-16.0); Immature Granulocytes % (Auto) 1 % (0-0); Immature Granulocytes Auto 0.05 Thou/mm3 (0.00-0.00); Lymphocytes # (Auto) 0.9 Thou/mm3 (1.0-4.8); Lymphocytes % (Auto) 10 % (10-50); Mean Corpuscular HGB Conc 34.2 g/dl (31.0-37.0); Mean Corpuscular Hemoglobin 32.6 pg (25.0-35.0); Mean Corpuscular Volume 95 fL (80-100); Monocytes # (Auto) 0.5 Thou/mm3 (0.0-0.8); Monocytes % (Auto) 6 % (0-12); Neutrophils # (Auto) 7.2 Thou/mm3 (1.8-7.7); Neutrophils % (Auto) 82 % (37-80); Nucleated Red Blood Cell % 0 /100 WBC (0); Platelet Count 152 Thou/mm3 (140-440); RDW Standard Deviation 48.7 fL (36.4-46.3); Red Blood Count 4.42 Miln/mm3 (4.00-5.20); White Blood Count 8.7 Thou/mm3 (3.6-11.0)
[2025-01-14 06:20] LABS: Alanine Aminotransferase < 7 U/L (10-49); Albumin, Serum 4.5 gm/dL (3.4-4.8); Albumin/Globulin Ratio 1.6 (1.2-2.2); Alkaline Phosphatase 52 U/L (46-116); Anion Gap 8 (7-16); Aspartate Amino Transferase 20 U/L (0-34); BUN/Creatinine Ratio 16 Ratio (12-20); Bilirubin,Total 0.8 mg/dL (0.3-1.2); Blood Urea Nitrogen 11 mg/dL (9-23); Calcium 9.5 mg/dL (8.3-10.6); Calcium (Corrected) 9.5 mg/dL (8.5-10.1); Carbon Dioxide 28.3 mMol/L (20.0-31.0); Chloride 105 mMol/L (98-107); Creatinine (Component) 0.7 mg/dL (0.6-1.3); Estimated Creatinine Clearance 46.8 mL/min (>60); Globulin 2.8 gm/dL (2.3-3.5); Glucose 131 mg/dL (74-106); Magnesium 2.3 mg/dL (1.6-2.6); Osmolality,Calculated 282 (275-295); Phosphorous 2.7 mg/dL (2.4-5.1); Sodium 141 mMol/L (136-145); Total Protein 7.3 gm/dL (5.7-8.2); eGFR > 60 See Note
[2025-01-14] MEDS: PROPRANOLOL 10 MG TABLET 20 MG PO (08:25)
[2025-01-14] MEDS: LOSARTAN POTASSIUM 25 MG TABLET 100 MG PO (08:29)
--- NOTE | 2025-01-14 10:38 | PC.SS ---
SS follow up: PT note sent to [facility] via Melissa husain at [facility] willing to accept patient and begin submitting for insurance authorization.
--- NOTE | 2025-01-14 12:25 | ESPR_ITS ---
Documentation for date of: 01/14/25 Subjective Subjective Interval history: Per patient daughter she has not lived in the last 24 hours and has been presenting hallucinations Today at bedside patient is AO x 1, responding to questions properly saturating well on room air, tolerating p.o, confused but easily to be reorient. Most likely cause of hallucinations can be secondary to carbidopa/levodopa as well as hospital-acquired delirium. Per neurology standpoint we recommend melatonin 3 mg p.o. at night for insomnia and per neurology standpoint patient can be discharged to SNF. Exam Vital Signs Temp Pulse Resp BP Pulse Ox O2 Del Method O2 Flow Rate 97.0 F 92 16 170/92 H 93 L Room Air 3 01/14/25 08:00 01/14/25 09:38 01/14/25 09:38 01/14/25 08:29 01/14/25 08:00 01/14/25 08:00 01/12/25 06:55 Narrative Exam General: AO x 1, respond to questions properly, mildly confused HEENT: NC/AT, PERRL, EOMI, Good conjugate gaze, moist mucous membranes Neck: Supple, No masses, No adenopathy, carotid pulse 2+ bilaterally without bruits, No JVD, normal range of motion. Chest: Symmetrical, atraumatic, and with equal expansion , Nontender on palpation no deformity and no crepitus. CVS: S1 and S2 present, Regular rate and rhythm, No murmurs, rubs or gallops perceived during auscultation. Lungs: Normal respiratory effort, CTAB, no wheezing, rhonchi or rales perceived during auscultation, No intercostal or subcostal retraction. Abdomen : Soft, no tenderness to palpation, no guarding ,no rebound, +BS, no organomegaly. Extremities: No edema, warm well perfused, normal tone and ROM, strength and sensation intact, cap refill less than 2, +2 dp equal bilaterally, able to move all 4 extremities spontaneously. Skin: Intact, no rashes, no lesions, no erythema or jaundice noted Neuro: AOx1,able to move all 4 extremities spontaneously, nonfocal, GCS 15, gait not assessed, strength 5/5 bilateral upper and lower extremities, Babinski negative Psych: Appropriate mood and affect Objective Labs 01/14/25 05:10 01/14/25 05:10 Labs: Laboratory Results - last 24 hr 01/13/25 01/14/25 15:09 05:10 WBC 8.7 RBC 4.42 Hgb 14.4 D Hct 42.1 MCV 95 MCH 32.6 MCHC 34.2 RDW Std Deviation 48.7 H Plt Count 152 D Neut % (Auto) 82 H Lymph % (Auto) 10 [place] % (Auto) 6 Eos % (Auto) 1 Baso % (Auto) 0 Neut # (Auto) 7.2 Lymph # (Auto) 0.9 L [place] # (Auto) 0.5 Eos # (Auto) 0.1 Baso # (Auto) 0.0 Immature Gran # (Auto) 0.05 H Absolute Nucleated RBC 0.00 Immature Gran % 1 H Nucleated RBC % 0 Sodium 141 Potassium 4.0 Chloride 105 Carbon Dioxide 28.3 Anion Gap 8 BUN 11 Creatinine 0.7 Estim Creat Clear Calc 46.8 L eGFR > 60 BUN/Creatinine Ratio 16 Glucose 131 H Calculated Osmolality 282 Lactic Acid 1.6 Calcium 9.5 Corrected Calcium 9.5 Phosphorus 2.7 Magnesium 2.3 Total Bilirubin 0.8 AST 20 ALT < 7 L Alkaline Phosphatase 52 D Total Protein 7.3 Albumin 4.5 D Globulin 2.8 Albumin/Globulin Ratio 1.6 ABG Interpretation ABG results: 01/12/25 03:25 ABG pH 7.30 L ABG pCO2 58 H ABG pO2 123 H ABG HCO3 28 H ABG O2 Saturation 99 H ABG Base Excess 1 Quality Measures Quality Measures VTE prophylaxis Advance care planning discussed with:: child Assessment & Plan Assessment Current Active Medications: Generic Name Dose Route Start Last Admin Trade Name Freq PRN Reason Stop Dose Admin Acetaminophen 650 mg 01/12/25 03:32 01/14/25 03:31 Acetaminophen 325 Mg Tablet PO 02/11/25 03:31 650 mg Q6H PRN Administration Fever >100.3 or pain 1-3 Atorvastatin Calcium 40 mg 01/12/25 21:00 01/13/25 20:05 Atorvastatin Calcium 10 Mg Tablet PO 02/11/25 20:59 40 mg HS GIFTY Administration Carbidopa/Levodopa 1 tab 01/12/25 06:00 01/14/25 05:12 Carbidopa/Levodopa 25/100 Mg Tablet PO 02/11/25 05:59 1 tab TID GIFTY Administration Duloxetine HCl 30 mg 01/14/25 11:30 Duloxetine Hcl 30 Mg Capsule PO 02/13/25 11:29 BID GIFTY Heparin Sodium (Porcine) 5,000 unit 01/12/25 06:00 01/14/25 05:12 Heparin Sod Inj 5000 Unit/Ml Vial SC 01/26/25 05:59 5,000 unit Q8HR GIFTY Administration Piperacillin/Tazobactam/Dextrose 3.375 gm in 50 mls @ 12.5 mls/hr 01/12/25 14:00 01/14/25 05:12 Zosyn IV 01/19/25 13:59 12.5 mls/hr Q8HR GIFTY Administration Levothyroxine Sodium 50 mcg 01/13/25 06:00 01/14/25 05:12 Levothyroxine Sodium 25 Mcg Tablet PO 02/12/25 05:59 50 mcg ACBR GIFTY Administration Losartan Potassium 100 mg 01/14/25 09:00 01/14/25 08:29 Losartan Potassium 25 Mg Tablet PO 02/13/25 08:59 100 mg QDAY GIFTY Administration Ondansetron HCl 4 mg 01/12/25 03:32 Ondansetron Inj 2 Mg/Ml Inj 2 Ml IV 02/11/25 03:31 Q6H PRN NAUSEA OR VOMITING Protocol Oxycodone/Acetaminophen 1 tab 01/12/25 03:32 Oxycodone/Apap 5/325 Tablet PO 01/17/25 03:31 Q6H PRN PAIN SCALE 4-10(Mod-Sev Propranolol HCl 20 mg 01/13/25 21:00 01/14/25 08:25 Propranolol 10 Mg Tablet PO 02/12/25 20:59 20 mg BID GIFTY Administration Plan #Altered mental status resolved Patient presented altered mental status associated to hallucinations CT head showed Negative for acute hemorrhage, mass effect or midline shift brain MRI Prominent chronic microvascular white matter changes, no acute infarct, negative for acute hemorrhage, mass effect or midline shift. Patient received 2 doses of anticholinergic medications that can be related to patient altered mental status and hallucinations as well as medication-induced hallucinations to the patient takes daily carbidopa/levodopa for Parkinson disease. Per patient family member she has no sleep in the last 24 hours as well having hallucinations and delirium that could be secondary to carbidopa/levodopa Plan: Per neurology standpoint patient can be discharged ? Continue atorvastatin 40 mg p.o. daily ? Upon discharge patient can resume aspirin 81 mg p.o. daily #Insomnia ? Melatonin 3 mg p.o. at night #Parkinson disease ? Continue home carbidopa-levodopa 1 tablet p.o. 3 times daily #Acute diverticulitis #STEPHENIE #History of hypothyroidism #Bilateral blindness Patient discussed with my attending Dr Genna Joya MD PGY-3 Disclaimer: Despite multiple revisions, due to the dictation software being used, the document bellow may not be free of grammatical errors including phonetic/typographic errors. However, this does not deter from our commitment to providing health care in the patient's best interest in mind. Attending Provider Attestation/Addendum I personally have seen and examined the patient at the bedside and agree with the resident's findings, assessment and plan of care. Will continue with the Sinemet for now we will continue to monitor for any hallucinations if it continues we will lower the dose of the Sinemet or adding Nuplazid as an outpatient. However she is stable from neurology standpoint for discharge to [facility]. Will see her back in 2 weeks.
[2025-01-14] MEDS: DULoxetine HCL 30 MG CAPSULE PO (12:29)
--- NOTE | 2025-01-14 14:17 | ESPR_ITS ---
Documentation for date of: 01/14/25 Subjective Subjective Interval history: No acute events overnight.?Patient seen and examined at bedside this afternoon. Patient reported feeling tired. Labs and vitals were reviewed. BP has been elevated, systolic 160-170s. Daughter reports that patient had recently had elevated BP at home, depending on what she is doing. Patient and daughter told to continue losartan 100 mg qday on discharge. Recently it had?been stopped by Nephrology Dr. Stein. Additionally continue bumetanide 0.5 mg qday. Patient instructed to follow up with Dr. Reyes in 3-4 weeks. No further complaints at this time. I have personally seen and examined the patient separately on the above date of service and discussed the plan of care with the resident. I reviewed the resident Dr. Mejia Hunt consultation progress note and agree with the resident findings and plan in the note above and have also edited the documentation to reflect my findings and plan. Eriberto Yip M.D. Interventional Cardiology Review of systems otherwise negative except what is mentioned above. Exam Vital Signs Temp Pulse Resp BP Pulse Ox O2 Del Method O2 Flow Rate 97.0 F 78 20 169/80 H 94 L Room Air 3 01/14/25 12:00 01/14/25 12:00 01/14/25 12:01/14/25 12:01/14/25 12:00 01/14/25 12:00 01/12/25 06:55 Narrative Exam Physical Exam General: Awake, responsive, conversational. Follow commands. AOx3. Bilateral blindness. HEENT: Normocephalic, atraumatic, mucous membranes moist. Heart: Regular rate and rhythm, no murmurs. Lungs: Clear to auscultation with no wheezing or crackles. Abdomen: Soft, nondistended, mild diffuse tenderness, positive bowel sounds. ?No guarding or rebound tenderness. Neurologic: Alert and oriented x3, speech understandable, no gross neurological deficit, and patient able to move all 4 extremities. Extremities: Trace bilateral lower extremity edema. Skin: No rash or ecchymoses. Objective Labs 01/14/25 05:10 01/14/25 05:10 Labs: Laboratory Results - last 24 hr 01/13/25 01/14/25 15:09 05:10 WBC 8.7 RBC 4.42 Hgb 14.4 D Hct 42.1 MCV 95 MCH 32.6 MCHC 34.2 RDW Std Deviation 48.7 H Plt Count 152 D Neut % (Auto) 82 H Lymph % (Auto) 10 [place] % (Auto) 6 Eos % (Auto) 1 Baso % (Auto) 0 Neut # (Auto) 7.2 Lymph # (Auto) 0.9 L [place] # (Auto) 0.5 Eos # (Auto) 0.1 Baso # (Auto) 0.0 Immature Gran # (Auto) 0.05 H Absolute Nucleated RBC 0.00 Immature Gran % 1 H Nucleated RBC % 0 Sodium 141 Potassium 4.0 Chloride 105 Carbon Dioxide 28.3 Anion Gap 8 BUN 11 Creatinine 0.7 Estim Creat Clear Calc 46.8 L eGFR > 60 BUN/Creatinine Ratio 16 Glucose 131 H Calculated Osmolality 282 Lactic Acid 1.6 Calcium 9.5 Corrected Calcium 9.5 Phosphorus 2.7 Magnesium 2.3 Total Bilirubin 0.8 AST 20 ALT < 7 L Alkaline Phosphatase 52 D Total Protein 7.3 Albumin 4.5 D Globulin 2.8 Albumin/Globulin Ratio 1.6 ABG Interpretation ABG results: 01/12/25 03:25 ABG pH 7.30 L ABG pCO2 58 H ABG pO2 123 H ABG HCO3 28 H ABG O2 Saturation 99 H ABG Base Excess 1 Quality Measures Quality Measures VTE prophylaxis Advance care planning discussed with:: patient and child Assessment & Plan Assessment Current Active Medications: Generic Name Dose Route Start Last Admin Trade Name Freq PRN Reason Stop Dose Admin Acetaminophen 650 mg 01/12/25 03:32 01/14/25 03:31 Acetaminophen 325 Mg Tablet PO 02/11/25 03:31 650 mg Q6H PRN Administration Fever >100.3 or pain 1-3 Atorvastatin Calcium 40 mg 01/12/25 21:00 01/13/25 20:05 Atorvastatin Calcium 10 Mg Tablet PO 02/11/25 20:59 40 mg HS GIFTY Administration Carbidopa/Levodopa 1 tab 01/12/25 06:00 01/14/25 05:12 Carbidopa/Levodopa 25/100 Mg Tablet PO 02/11/25 05:59 1 tab TID GIFTY Administration Duloxetine HCl 30 mg 01/14/25 11:30 01/14/25 12:29 Duloxetine Hcl 30 Mg Capsule PO 02/13/25 11:29 30 mg BID GIFTY Administration Gabapentin 300 mg 01/14/25 14:30 Gabapentin 300 Mg Capsule PO 02/13/25 14:29 TID GIFTY Heparin Sodium (Porcine) 5,000 unit 01/12/25 06:00 01/14/25 05:12 Heparin Sod Inj 5000 Unit/Ml Vial SC 01/26/25 05:59 5,000 unit Q8HR GIFTY Administration Piperacillin/Tazobactam/Dextrose 3.375 gm in 50 mls @ 12.5 mls/hr 01/12/25 14:00 01/14/25 05:12 Zosyn IV 01/19/25 13:59 12.5 mls/hr Q8HR GIFTY Administration Levothyroxine Sodium 50 mcg 01/13/25 06:00 01/14/25 05:12 Levothyroxine Sodium 25 Mcg Tablet PO 02/12/25 05:59 50 mcg ACBR GIFTY Administration Losartan Potassium 100 mg 01/14/25 09:00 01/14/25 08:29 Losartan Potassium 25 Mg Tablet PO 02/13/25 08:59 100 mg QDAY GIFTY Administration Melatonin 3 mg 01/14/25 14:15 Melatonin 3 Mg Tablet PO 01/14/25 14:16 X1 ONE Ondansetron HCl 4 mg 01/12/25 03:32 Ondansetron Inj 2 Mg/Ml Inj 2 Ml IV 02/11/25 03:31 Q6H PRN NAUSEA OR VOMITING Protocol Oxycodone/Acetaminophen 1 tab 01/12/25 03:32 Oxycodone/Apap 5/325 Tablet PO 01/17/25 03:31 Q6H PRN PAIN SCALE 4-10(Mod-Sev Propranolol HCl 20 mg 01/13/25 21:00 01/14/25 08:25 Propranolol 10 Mg Tablet PO 02/12/25 20:59 20 mg BID GIFTY Administration Plan 84-year-old female with a previous medical history of dementia, Parkinson's disease, 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 Patient was subsequently admitted for stroke rule out. Cardiology was consulted for management of chronic cardiac medical conditions including hypertension. #History of hypertension Assessment: No history of CHF. Stable at this time. Recommendation: -Resume home meds, including losartan 100 mg qday and bumetanide 0.5 mg qday. Rest of conditions to continue current management per primary team: #Stroke rule out #Altered mental status #History of dementia #Acute diverticulitis #STEPHENIE #History of Parkinson's disease #History of hypothyroidism #Bilateral blindness Patient was discussed with the Cardiology attending, Dr. Reyes. Thank you for allowing us to participate in the care of this patient. Anabelle Palomino, PGY-2 Attending Provider Attestation/Addendum I have personally seen and examined the patient separately on the above date of service and discussed the plan of care with the resident. I reviewed the resident Dr. Katerin Palomino consultation progress note and agree with the resident findings and plan in the note above and have also edited the documentation to reflect my findings and plan. Eriberto Yip M.D. Interventional Cardiology
--- NOTE | 2025-01-14 14:18 | PD.RESDS ---
Planned Discharge Date 01/14/25 DS: Providers Provider Date of admission: 01/12/25 03:32 Primary care physician: Antonio Bustillos MD Admitting Provider: Jacob Shah MD Attending Provider on Admission: Violeta Tate MD Consults: 01/12/25 03:42 Consult to Neurology / Tele-Neurology Stat Comment: stroke rule out Consulting Provider: Josue Vail 01/12/25 03:43 Referral Physical Therapy Routine Comment: Physician Instructions: 01/12/25 03:44 Referral Speech Therapy Routine Comment: 01/12/25 07:10 Consult to Gastroenterology Routine Comment: Consulting Provider: Bob Rome 01/12/25 07:47 Consult to General Surgery Stat Comment: CT Ab Diverticulitis &Pneumobilia. 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 Self reported CHF but no record on file, unlikely history of CHF. Patient admitted for acute encephalopathy with increasing hallucinations, likely multifactorial in the setting of dementia, less likely secondary to stroke as it was ruled out via CT and MRI. Diverticulitis on imagining with diffuse abdominal pain on physical exam, placed on antibiotics. ER Course: Blood pressure 114/70, heart rate 62, saturating well on 6 L nasal cannula. Labs showed: WBC count of 8.8, hemoglobin 12.9, hematocrit 40.1, platelet count of 118. ABG showed pH of 7.30, pCO2 58, PO2 123. Sodium 138, potassium 4.1, chloride 101, BUN 21, creatinine 1.5, glucose 100. Ammonia less than 10. Troponin I 0.0 25, BNP 805, TSH 4.07, T4 1.24. She received aspirin 81 mg and clopidogrel 75 mg. Hospital Course: Patient initially admitted for acute encephalopathy, concerning for stroke as patient presented with nonsensical speech and generalized weakness, stroke alert called. CT head negative for acute hemorrhage or mass effect. Head/Neck CTA, no significant neck arterial stenosis. Brain MRI prominent chronic microvascular white matter changes, indicating chronic changes likely secondary to dementia. EEG negative. Abdominal/Pelvis CT obtained, noted for acute diverticulitis. Broad spectrum antibiotics started with Zosyn. GI consulted for Pneumobilia noted on CT Abdomen. 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 STEPHENIE on admission, likely pre-renal that improved with fluid resuscitation. Acute encephalpathly unlikely secondary to stroke and likely multifactorial from diarrhea, dehydration, and diverticultis noted on Abdomen/Pelvis CT. #Acute Diverticulitis #Diarrhea #Acute toxic encephalopathy, likley multi-factorial, improved #history of Demenita #Stroke, ruled out #Pneumobila #history of cholecystectomy #STEPHENIE, resolved. #History of hypothyrodisim #Bilateral Blindness Instructions: -Please complete course of antibiotics for diverticulitis for 7 more days -Please continue the rest of your home medication as prescribed -Restart home losartan 100mg per day -Please follow up with your primary care provider within one week of discharge, please follow up with Dr. Caldwell-gatroenterologist, Please follow DR. Vail, and your business unit leader Dr. Reyes -Please ask for echo with bubble study outpatient for further workup -If your symptoms worsen,please seek immediate medical attention and return to your nearest emergency room -If you do not have a primary care provider, [facility] [address], [place] [address], - The patient's plan was discussed with attending Dr. Tate and senior residents Dr. Kessler, PGY-2 Kaitlynn Middleton MD PGY1 Internal Medicine Time Spent with Patient Time attestation: Total time spent providing and/or coordinating discharge services: at least 30 minutes of care and coordination Time spent: Greater than 30 minutes Exam Vital Signs Temp Pulse Resp BP Pulse Ox O2 Del Method O2 Flow Rate 97.0 F 78 20 169/80 H 94 L Room Air 3 01/14/25 12:00 01/14/25 12:00 01/14/25 12:00 01/14/25 12:01/14/25 12:01/14/25 12:01/12/25 06:55 Narrative Exam General Appearance: Alert & Oriented X1, well-nourished female who is lying in bed in no acute distress HEENT: Skull symmetrical and atraumatic. Conjunctivae pin and moist. Pupils equal, round, reactive to light and accommodation (PERRL). External ear without lesion or discharge. Straight, nares patient, mucosa pink, no discharge. No thyroid nodule appreciated. No cervical lymphadenopathy. Cardio: Normal Rate and Rhythm with S1 and S2 heart sounds. No murmurs or extra heart sounds auscultated. No bruits on carotid auscultation. No peripheral edema or cyanosis. Lungs: Symmetric with good expansion. Chest and back non-tender. Breath sounds vesicular without crackles, wheezing or rhonchi Abdomen: Non-tender, Non-distended, Normal Reactive Bowel Sounds Neuro: Yes Alert, YEs cooperative, Yes oriented to person, NO place, and NO time. Speech clear. CN grossly intact. Upper motor strength 5/5 and Lower motor strength 5/5. Sensation intact. Discharge Plan Plan Patient Disposition: [facility] Patient condition on transfer: Stable Care Plan Goals: Instructions: -Please complete course of antibiotics for diverticulitis for 7 more days -Please continue the rest of your home medication as prescribed -Restart home losartan 100mg per day -Please follow up with your primary care provider within one week of discharge, please follow up with Dr. Caldwell-gatroenterologist, Please follow DR. Vail, and your business unit leader Dr. Reyes -Please ask for echo with bubble study outpatient for further workup -If your symptoms worsen,please seek immediate medical attention and return to your nearest emergency room -If you do not have a primary care provider, you may follow up at the [facility] [address], [place] [address], Prescriptions/Referrals Prescriptions/Med Rec: New amoxicillin 875 mg tablet 875 mg PO BID 7 Days Qty: 14 0RF losartan 100 mg tablet 100 mg PO QDAY 30 Days Qty: 30 0RF melatonin 3 mg capsule 3 mg PO HS PRN (Reason: sleep) 30 Days Qty: 30 0RF Continued loratadine 10 mg tablet 10 mg PO QDAY estradiol [Estrace] 0.01 % (0.1 mg/gram) cream 2 g vaginal DIRECTED Patient Comments: twice a week gabapentin 300 mg capsule 300 mg PO TID bumetanide 1 mg tablet 0.5 mg PO QDAY propranolol 20 mg tablet 20 mg PO BID meclizine 25 mg tablet 25 mg PO BID cranberry 500 mg capsule 500 mg PO QDAY Rx Instructions: administer with meals ascorbic acid (vitamin C) 500 mg capsule 500 mg PO QDAY albuterol sulfate 90 mcg/actuation HFA aerosol inhaler 2 puff inhalation Q8H PRN (Reason: shortness of breath or wheezing) Aspirin Ec * (ECOTRIN *) 81 MG TABLET.DR 81 mg PO QDAY Qty: 0 simvastatin [Zocor] 40 MG tablet 40 mg PO HS Qty: 0 Levothyroxine * (SYNTHROID *) 50 MCG tablet 50 mcg PO QDAY Qty: 0 carbidopa-levodopa 25-100 mg tablet 1 tab PO TID Patient Comments: take 1 tablet by mouth three times a day esomeprazole magnesium 40 mg capsule,delayed release(DR/EC) 40 mg PO QDAY Patient Comments: take 1 capsule by mouth once daily potassium chloride 10 mEq tablet,ER particles/crystals 10 meq PO QDAY Patient Comments: take 1 tablet by mouth once daily with food Discontinued nitrofurantoin monohyd/m-cryst [Macrobid] 100 mg capsule 100 mg PO QDAY Rx Instructions: must administer with a meal/food Referrals: Bob Rome MD [Physician] - Beba Reyes MD [Physician] - Josue Vail MD [Physician] - Antonio Butsillos MD [Primary Care Provider] - Patient/Caregiver Discharge Instructions Education Materials: Diverticulosis Diverticulitis, Discharge Instructions for ... Print Language: Thai Stand Alone Forms: Kelsy Award Info., Patient Portal Info Letter Discharge Order Discharge Orders: Discharge (Routine); Ordered 01/14/25 Ordered By: Kaitlynn Middleton Quality Discharge Quality Measures VTE prophylaxis
[2025-01-14] MEDS: MELATONIN 3 MG TABLET PO (15:28)
[2025-01-14] MEDS: GABAPENTIN 300 MG CAPSULE PO (15:28)
--- NOTE | 2025-01-14 15:53 | PC.SS ---
Addendum entered by Estella Montiel 01/14/25 16:17: Update: I.v. discontinued. Daughter to drive patient to facilit now. LINDAard aware. Original Note: Follow up note: SS spoke to [employer] FURNACE OPERATOR HELPER and assisted with discharge. SS spoke to daughter who is upset and wants patient to d/c now if she is going to facility. SS reviewed PT notes and patient ambulated up to 30 feet. SS clarified with floor nurse and she agreed patient can most likely transport via private vehicle, however, patient is getting more altered. Patient also has an i.v. line that was just started and takes 4 hours to run. Floor nurse to clarify with physician team d/c plans.
== END 2025-01-14 16:38 | disposition skilled nursing facility (03) | DRG 92 ==
LOC: SERX 01-12 04:12 → SERHOLD 01-12 05:00 → S2NX 01-12 18:33
PROVIDERS: Registered Nurse General Practice; Student in an Organized Health Care Education/Training Program; Admitting Provider Student in an Organized Health Care Education/Training Program; Emergency Provider Emergency Medicine; PCP Family Medicine; Visit Provider Internal Medicine Cardiovascular Disease
DX: G92.8 Other toxic encephalopathy (principal); F02.82 Dementia in other diseases classified elsewhere, unspecified severity, with psychotic disturbance; K57.32 Diverticulitis of large intestine without perforation or abscess without bleeding; N17.9 Acute kidney failure, unspecified; I10 Essential (primary) hypertension; H54.3 Unqualified visual loss, both eyes; G20.A1 Parkinson's disease without dyskinesia, without mention of fluctuations; H35.52 Pigmentary retinal dystrophy; E03.9 Hypothyroidism, unspecified; I71.21 Aneurysm of the ascending aorta, without rupture; E78.5 Hyperlipidemia, unspecified; K83.8 Other specified diseases of biliary tract
CPT/HCPCS: 36415; 36600; 70450; 70496; 70498; 70544; 70553; 71250; 74176; 78227; 80053; 80061; 80307; 81001; 82140; 82803; 83036; 83605; 83615; 83735; 83880; 84100; 84145; 84439; 84443; 84484; 85025; 85610; 85730; 87086; 87400; 87811; 92610; 93005; 95816; 96361; 96365; 96372; 97163; 99285; A4649; A9537; A9579; J0360; J1643; J2543; J3490; J7120; Q9967; S8037; 74181; A9270; J1920

== ENCOUNTER → 2025-01-31 | Outpatient (CLI) | payer MEDICARE, MEDICAID, SELFPAY ==
[2025-01-31 10:16] LABS: Basophils % (Auto) 1 % (0-2.5); Eosinophils # (Auto) 0.2 Thou/mm3 (0.0-0.5); Eosinophils % (Auto) 4 % (0-10); Hematocrit 37.1 % (36.0-46.0); Hemoglobin 12.5 g/dL (12.0-16.0); Immature Granulocytes % (Auto) 0 % (0-0); Immature Granulocytes Auto 0.02 Thou/mm3 (0.00-0.00); Lymphocytes # (Auto) 1.4 Thou/mm3 (1.0-4.8); Lymphocytes % (Auto) 30 % (10-50); Mean Corpuscular HGB Conc 33.7 g/dl (31.0-37.0); Mean Corpuscular Hemoglobin 32.8 pg (25.0-35.0); Mean Corpuscular Volume 97 fL (80-100); Monocytes # (Auto) 0.5 Thou/mm3 (0.0-0.8); Monocytes % (Auto) 11 % (0-12); Neutrophils # (Auto) 2.5 Thou/mm3 (1.8-7.7); Neutrophils % (Auto) 54 % (37-80); Nucleated Red Blood Cell % 0 /100 WBC (0); Platelet Count 204 Thou/mm3 (140-440); RDW Standard Deviation 48.4 fL (36.4-46.3); Red Blood Count 3.81 Miln/mm3 (4.00-5.20); White Blood Count 4.6 Thou/mm3 (3.6-11.0)
[2025-01-31 10:34] LABS: Alanine Aminotransferase 11 U/L (10-49); Albumin, Serum 4.2 gm/dL (3.4-4.8); Albumin/Globulin Ratio 1.7 (1.2-2.2); Alkaline Phosphatase 61 U/L (46-116); Anion Gap 8 (7-16); Aspartate Amino Transferase 18 U/L (0-34); BUN/Creatinine Ratio 15 Ratio (12-20); Bilirubin,Total 0.4 mg/dL (0.3-1.2); Blood Urea Nitrogen 12 mg/dL (9-23); Calcium 8.9 mg/dL (8.3-10.6); Calcium (Corrected) 8.9 mg/dL (8.5-10.1); Carbon Dioxide 28.6 mMol/L (20.0-31.0); Cardiac Risk Estimate 3.1 RATIO (3.7-5.6); Chloride 99 mMol/L (98-107); Cholesterol 110 mg/dL (132-200); Creatinine (Component) 0.8 mg/dL (0.6-1.3); Free T4 (Free Thyroxine) 1.26 ng/dL (0.89-1.76); Globulin 2.5 gm/dL (2.3-3.5); Glucose 108 mg/dL (74-106); HDL Cholesterol 35 mg/dL (40-60); LDL Cholesterol,Calculated 46 mg/dL (0-130); Osmolality,Calculated 272 (275-295); Potassium 4.6 mMol/L (3.4-5.1); Sodium 136 mMol/L (136-145); Thyroid Stimulating Hormone 2.27 uIU/mL (0.55-4.78); Total Protein 6.7 gm/dL (5.7-8.2); Triglycerides 144 mg/dL (30-150); eGFR > 60 See Note
[2025-01-31 15:35] LABS: Vitamin B12 445 pg/mL (211-911); Vitamin D 25 Hydroxy Total 27.5 ng/mL (7.3-40.2)
== END | disposition home or self-care (01) ==
LOC: COPL 09:34
PROVIDERS: PCP Family Medicine; Referring Provider Family Medicine; Visit Provider Family Medicine
DX: E78.1 Pure hyperglyceridemia (principal); E03.2 Hypothyroidism due to medicaments and other exogenous substances; D50.0 Iron deficiency anemia secondary to blood loss (chronic); Z13.1 Encounter for screening for diabetes mellitus
CPT/HCPCS: 36415; 80053; 80061; 82306; 82607; 84439; 84443; 85025

== ENCOUNTER → 2025-02-14 | Outpatient (CLI) | payer MEDICARE, MEDICAID, SELFPAY ==
[2025-02-14 11:18] LABS: Blood Urea Nitrogen 20 mg/dL (9-23); Creatinine (Component) 0.9 mg/dL (0.6-1.3); eGFR > 60 See Note
== END | disposition home or self-care (01) ==
PROVIDERS: PCP Family Medicine; Referring Provider Student in an Organized Health Care Education/Training Program; Visit Provider Student in an Organized Health Care Education/Training Program
DX: I72.2 Aneurysm of renal artery (principal)
CPT/HCPCS: 36415; 82565; 84520

== ENCOUNTER → 2025-03-02 | Outpatient (CLI) | payer MEDICARE, MEDICAID, SELFPAY ==
--- NOTE | 2025-03-02 14:30 | XR_ITS ---
Examination: CTA chest with intravenous contrast 2-D reconstructions 3-D reconstructions, vascular Date and time of exam: March 02, 2025 1446 hours INDICATIONS: Chest pain shortness of breath this week, aneurysmal dilatation ascending thoracic aorta 4.[address] study January 12, 2025 CTDI: vol (mGy) 12.5 DLP: (mGycm) for Technique: Multiple axial sections of the thorax have been obtained. 3 mm slice thickness, from below the hemidiaphragms to above the apices of the lungs. Mediastinal and lung density settings have been obtained. 2-D sagittal and coronal reconstructions. 3-D angiographic renderings, 3-D volume renderings, 3D post processing, vascular maximum intensity projections obtained. Contrast administered is 100 cc [id number]. Low dose protocols were performed. One or more of the following dose reduction techniques were used; automated exposure control, adjustment of the mA and/or KV according to patient size, use of iterative reconstruction technique. Findings: Medial lateral dimension ascending thoracic aorta 4.1 cm no thoracic aortic dissection Pulmonary artery segments are not enlarged No pulmonary artery filling defects Stent in the descending thoracic aorta extending into the upper abdomen, mediolateral dimension ascending thoracic aorta 3.4 cm 5 mm pulmonary nodule right lower lobe image 185 IMPRESSION: Mild aneurysmal dilatation ascending thoracic aorta Intact stent in the descending thoracic aorta 5 mm pulmonary nodule right lower lobe, recommend continued 6 month follow-up CT chest without contrast to document stability of this pulmonary nodule
== END | disposition home or self-care (01) ==
LOC: CCTX 14:13
PROVIDERS: Referring Provider Student in an Organized Health Care Education/Training Program; Visit Provider Student in an Organized Health Care Education/Training Program
DX: R91.1 Solitary pulmonary nodule (principal); I71.20 Thoracic aortic aneurysm, without rupture, unspecified
CPT/HCPCS: 71275; A4649; Q9967

== ENCOUNTER → 2025-03-18 | Outpatient (CLI) | payer MEDICARE, MEDICAID, SELFPAY ==
--- NOTE | 2025-03-18 | XR_ITS ---
Examination: AP pelvis single view TECHNIQUE: AP supine pelvis single view Date and time: March 18, 2025 11:32 AM INDICATIONS: Patient fell 8 days ago with injury to the pelvis, pelvic pain FINDINGS: No acute hip or pelvic fracture Moderate to advanced bilateral hip osteoarthritis IMPRESSION: No acute hip or pelvic fracture
== END | disposition home or self-care (01) ==
PROVIDERS: PCP Family Medicine; Referring Provider Family Medicine; Visit Provider Family Medicine
DX: S39.93XA Unspecified injury of pelvis, initial encounter (principal); W19.XXXA Unspecified fall, initial encounter
CPT/HCPCS: 72170

== ENCOUNTER → 2025-05-26 | Outpatient (CLI) | payer MEDICARE, MEDICAID, SELFPAY ==
[2025-05-26 10:54] LABS: Albumin, Serum 4.5 gm/dL (3.4-4.8); Anion Gap 9 (7-16); BUN/Creatinine Ratio 19 Ratio (12-20); Blood Urea Nitrogen 19 mg/dL (9-23); Calcium 9.9 mg/dL (8.3-10.6); Calcium (Corrected) 9.9 mg/dL (8.5-10.1); Carbon Dioxide 29.5 mMol/L (20.0-31.0); Chloride 100 mMol/L (98-107); Creatinine (Component) 1.0 mg/dL (0.6-1.3); Glucose 122 mg/dL (74-106); Osmolality,Calculated 278 (275-295); Phosphorous 3.7 mg/dL (2.4-5.1); Potassium 4.3 mMol/L (3.4-5.1); Sodium 138 mMol/L (136-145); eGFR 55 See Note
== END | disposition home or self-care (01) ==
LOC: COPL 09:23
PROVIDERS: PCP Family Medicine; Referring Provider Internal Medicine Cardiovascular Disease; Visit Provider Internal Medicine Cardiovascular Disease
DX: I11.0 Hypertensive heart disease with heart failure (principal); I50.30 Unspecified diastolic (congestive) heart failure
CPT/HCPCS: 36415; 80069

== ENCOUNTER → 2025-09-05 | Outpatient (CLI) | payer MEDICARE, MEDICAID, SELFPAY ==
--- NOTE | 2025-09-05 10:51 | XR_ITS ---
Examination: Foot bilateral, 6 views Technique: AP, oblique, lateral views each foot total 6 views Date and time of exam: September 05, 2025, 1115 hours INDICATIONS: Bilateral heel pain 1 month. FINDINGS: Severe osteopenia No acute fractures 4 mm plantar 4 mm posterior right bony calcaneal spurs Extensive ossification of the right plantar fascia The lateral view left foot is limited There is a large left 15 mm plantar bony calcaneal spur Ossification of the plantar fascia IMPRESSION: 4 mm plantar 4 mm posterior right bony calcaneal spurs Extensive ossification of the right plantar fascia 15 mm left plantar bony calcaneal spur Ossification of the left plantar fascia
== END | disposition home or self-care (01) ==
LOC: SDIM 10:48 → CDIM 14:30
PROVIDERS: PCP Family Medicine; Referring Provider Family Medicine; Visit Provider Family Medicine
DX: M77.32 Calcaneal spur, left foot (principal); M77.31 Calcaneal spur, right foot; M25.872 Other specified joint disorders, left ankle and foot; M25.871 Other specified joint disorders, right ankle and foot
CPT/HCPCS: 73630

== ENCOUNTER → 2025-09-08 | Outpatient (CLI) | payer MEDICARE, MEDICAID, SELFPAY ==
--- NOTE | 2025-09-08 09:12 | XR_ITS ---
Examination: Arterial duplex lower extremity study. Date and time of exam: September 08, 2025, 0934 hours INDICATIONS: Nonhealing wound left heel and pain beginning 6 weeks ago Findings: Duplex sonographic imaging of the lower extremity arteries using B-mode/Kim scale imaging and Doppler spectral analysis and color flow. Ankle brachial indices have been recorded. Right common femoral artery demonstrates biphasic flow. Right superficial femoral artery demonstrates biphasic flow. Right popliteal artery demonstrates biphasic flow. Right posterior tibial artery demonstrated no flow. Right ankle/brachial index is 0.6. Left common femoral artery demonstrates biphasic flow. Left superficial femoral artery demonstrates monophasic flow. Left popliteal artery demonstrates monophasic flow. Left posterior tibial artery demonstrated no flow. Left ankle/brachial index is 0.6. Impression: Severe bilateral peripheral obstructive arterial disease, consider correlation with CTA abdominal aorta iliofemoral runoff post intravenous contrast
== END | disposition home or self-care (01) ==
PROVIDERS: PCP Family Medicine; Referring Provider Family Medicine; Visit Provider Family Medicine
DX: I77.9 Disorder of arteries and arterioles, unspecified (principal)
CPT/HCPCS: 93925

== ENCOUNTER → 2025-09-09 | Outpatient (CLI) | payer MEDICARE, MEDICAID, SELFPAY ==
[2025-09-09 13:50] LABS: Albumin, Serum 4.8 gm/dL (3.4-4.8); Anion Gap 11 (7-16); BUN/Creatinine Ratio 18 Ratio (12-20); Blood Urea Nitrogen 20 mg/dL (9-23); Calcium 9.5 mg/dL (8.3-10.6); Calcium (Corrected) 9.5 mg/dL (8.5-10.1); Carbon Dioxide 28.5 mMol/L (20.0-31.0); Chloride 99 mMol/L (98-107); Creatinine (Component) 1.1 mg/dL (0.6-1.3); Glucose 118 mg/dL (74-106); Osmolality,Calculated 279 (275-295); Phosphorous 4.0 mg/dL (2.4-5.1); Potassium 4.1 mMol/L (3.4-5.1); Sodium 138 mMol/L (136-145); eGFR 49 See Note
== END | disposition home or self-care (01) ==
LOC: COPL 11:45
PROVIDERS: PCP Family Medicine; Referring Provider Family Medicine; Visit Provider Family Medicine
DX: Z13.1 Encounter for screening for diabetes mellitus (principal)
CPT/HCPCS: 36415; 80069